=== PATIENT | male | born 1975 | race Caucasian/White ===

== ENCOUNTER 2016-10-27 09:45 | Outpatient (RCR) | payer OTHER ==
[~2016-10-27 09:45] MED LIST: ALPR.5T PO; CPR500T PO; HYDR1CAP2 PO; IBP600T1 PO; NAPR-243 PO; PHEN100T26 PO
== END 2016-12-20 | disposition home or self-care (01) ==
PROVIDERS: ATTEND Physician Assistant
DX: M54.5 Low back pain (principal)

== ENCOUNTER → 2016-11-29 | Outpatient (CLI) | payer OTHER ==
[~2016-11-29] MED LIST changes: +GADOBUTROL 10 MMOL/10 ML (GADAVIST) VIAL IV ONE
--- NOTE | 2016-11-29 11:02 | Diagnostic Imaging Report ---
CLINICAL INDICATION: Patient with history of pituitary adenoma. Followup exam. EXAM: MRI of the brain performed without and with 8 cc of Gadavist IV contrast. Sequences include axial DWI, ADC map, axial T2, axial FLAIR, axial T1, axial gradient echo, sagittal T1 thin sella, coronal T1 thin sella, coronal T2 fat-sat thin sella, axial T1 post IV contrast whole brain, coronal T1 fat-sat post IV contrast whole brain, sagittal T1 post IV contrast whole brain, sagittal T1 thin post IV contrast sella, coronal T1 thin post IV contrast sella, axial T1 thin post IV contrast sella, and coronal T1 post IV contrast dynamic phases. COMPARISON: MRI of the brain performed without and with IV contrast dated 05/18/2016. FINDINGS: The previously seen 6 mm heterogeneous hypo-intensity area involving the left posterior aspect of the pituitary gland is not seen on this exam. This area has either resolved, or it represented volume averaging from adjacent cavernous carotid artery on the prior study. There is no evidence of acute cerebral infarct, intracranial hemorrhage, or gross mass effect. Stable small area of high T2 signal in the right temporal lobe periventricular region. Otherwise, brain parenchyma is stable and shows no other significant abnormality. There is normal edgar-white matter distinction. The brain parenchymal volume appears appropriate for patient's age. There is no significant midline shift or herniation. The visualized [place] vascular structures show no significant abnormality. There is no evidence of hydrocephalus. The basal cisterns are unremarkable. The skull, extracranial soft tissue, and orbits are unremarkable. There is a small to moderate-sized mucous retention cyst in the floor of the right maxillary sinus. There is moderate mucosal thickening in the ethmoid sinus. There is minimal mucosal thickening involving the remainder of the bilateral maxillary sinuses and frontal sinus. IMPRESSION: 1: The previously seen 6 mm heterogeneous hypointensity area involving the left posterior aspect of the pituitary gland is not seen on this exam. This area has either resolved, or it represented volume averaging from adjacent cavernous carotid artery on the prior study. 2: The remainder of the brain parenchyma is stable, including the small area of nonspecific high T2 signal in the right temporal lobe. 3: Paranasal sinus disease. Dictated by: Dictated on workstation # [id number]
== END ==
LOC: RAD 09:12
PROVIDERS: ATTEND Internal Medicine
DX: D35.2 Benign neoplasm of pituitary gland (principal)
CPT/HCPCS: 70553

== ENCOUNTER 2017-02-15 11:20 | Outpatient (RCR) | payer OTHER ==
[~2017-02-15 11:20] MED LIST changes: -GADOBUTROL 10 MMOL/10 ML (GADAVIST) VIAL IV ONE
== END 2017-04-18 15:03 | disposition home or self-care (01) ==
PROVIDERS: ATTEND Physician Assistant
DX: M54.5 Low back pain (principal)

== ENCOUNTER 2020-04-18 22:03 | Inpatient (IN) | payer OTHER ==
[~2020-04-18] VITALS: Ht 177.8 cm; Wt 92.5 kg
[2020-04-18] MEDS ORDERED: PROMETHAZINE INJ 25 MG/ML (PHENERGAN) AMP ONE (22:07)
[2020-04-18] MEDS ORDERED: NS IV 1000 ML 1,000 ML ONE (22:07)
[2020-04-18] MEDS ORDERED: PROMETHAZINE INJ 25 MG/ML (PHENERGAN) AMP IVP ONE (22:15)
[2020-04-18] MEDS ORDERED: MECLIZINE 25 MG (ANTIVERT) TAB PO ONE (22:15)
[2020-04-18] MEDS ORDERED: NS IV 1000 ML 1,000 ML IV SCH (22:15)
--- NOTE | 2020-04-18 22:18 | ED GI ---
General Stated Complaint: DIZZINESS;VOMITING Source of Information: Patient Exam Limitations: No Limitations (AJYCE VARELA APRN) History of Present Illness Date Seen by Provider: Apr 18, 2020 Time Seen by Provider: 22:15 Initial Comments To ER with nausea and vomiting. This began with dizziness earlier today while at work, the dizziness progressed to vomiting. He's had some intermittent dizziness followed by vomiting this evening. He had a couple episodes of dizziness within the past 2-3 weeks but no vomiting. Dizziness goes away at rest but returns any time he moves. Timing/Duration: 1-2 Days, Getting Worse, Intermittent Severity/Quality: Moderate Radiation: No Radiation Associated Symptoms: Nausea/Vomiting (JAYCE VARELA APRN) Allergies and Home Medications Allergies Coded Allergies: No Known Drug Allergies (Unverified , 07/04/10) Home Medications Alprazolam 0.5 Mg Tablet, 1 TAB PO ONCE, (Reported) Ciprofloxacin 500 Mg Tablet, 1 TAB PO BID Prescribed by: KAVIN GARCIA on 07/05/1042 Hydrocodone Bit/Acetaminophen 1 Each Capsule, 2 EACH PO Q6HR PRN Prescribed by: KAVIN GARCIA on 07/05/1042 Ibuprofen 600 Mg Tab, 600 MG PO ONCE, (Reported) Meclizine HCl 25 Mg Tablet, 25 MG PO TID PRN for DIZZINESS Prescribed by: JAYCE VARELA on 04/18/202225 Naproxen 500 Mg Tablet, 1 EACH PO BID PRN Prescribed by: KAVIN GARCIA on 07/05/1043 Phenazopyridine Hcl 100 Mg Tablet, 1 TAB PO TID PRN Prescribed by: KAVIN GARCIA on 07/05/1042 Promethazine HCl 25 Mg Tablet, 25 MG PO Q8H PRN for NAUSEA/VOMITING Prescribed by: JAYCE VARELA on 04/18/202225 Patient Home Medication List Home Medication List Reviewed: Yes (JAYCE VARELA APRN) Review of Systems Review of Systems Constitutional: see HPI; No chills, No fever EENTM: No Symptoms Reported Respiratory: No Symptoms Reported Cardiovascular: No Symptoms Reported Gastrointestinal: No Symptoms Reported Genitourinary: No Symptoms Reported Musculoskeletal: no symptoms reported Skin: no symptoms reported Psychiatric/Neurological: No Symptoms Reported Endocrine: No Symptoms Reported Hematologic/Lymphatic: No Symptoms Reported (JAYCE VARELA APRN) Physical Exam Vital Signs Vital Signs - First Documented 04/18/20 22:08 Temp 36.5 Pulse 122 Resp 18 B/P (MAP) 132/80 (97) Pulse Ox 96 O2 Delivery Room Air (CHANCE MARTINEZ MD) Vital Signs Capillary Refill : (JAYCE VARELA APRN) Height/Weight/BMI Height: '" Weight: lbs. oz. kg; BMI Method: General Appearance: WD/WN, no apparent distress HEENT: PERRL/EOMI, normal ENT inspection Neck: non-tender, full range of motion Respiratory: no respiratory distress, no accessory muscle use Gastrointestinal: normal bowel sounds, non tender, soft Extremities: normal range of motion, non-tender Neurologic/Psychiatric: alert, normal mood/affect, oriented x 3 Skin: normal color, warm/dry (JAYCE VARELA APRN) Progress/Results/Core Measures Results/Orders Lab Results Laboratory Tests Test 04/18/20 22:11 Range/Units White Blood Count 10.2 4.3-11.0 10^3/uL Red Blood Count 5.91 H 4.35-5.85 10^6/uL Hemoglobin 17.2 13.3-17.7 G/DL Hematocrit 50 40-54 % Mean Corpuscular Volume 85 80-99 FL Mean Corpuscular Hemoglobin 29 25-34 PG Mean Corpuscular Hemoglobin Concent 34 32-36 G/DL Red Cell Distribution Width 14.0 10.0-14.5 % Platelet Count 191 130-400 10^3/uL Mean Platelet Volume 9.8 7.4-10.4 FL Neutrophils (%) (Auto) 71 42-75 % Lymphocytes (%) (Auto) 19 12-44 % Monocytes (%) (Auto) 8 0-12 % Eosinophils (%) (Auto) 2 0-10 % Basophils (%) (Auto) 1 0-10 % Neutrophils # (Auto) 7.3 1.8-7.8 X 10^3 Lymphocytes # (Auto) 1.9 1.0-4.0 X 10^3 Monocytes # (Auto) 0.8 0.0-1.0 X 10^3 Eosinophils # (Auto) 0.2 0.0-0.3 10^3/uL Basophils # (Auto) 0.1 0.0-0.1 10^3/uL Sodium Level 141 135-145 MMOL/L Potassium Level 4.5 3.6-5.0 MMOL/L Chloride Level 108 H 98-107 MMOL/L Carbon Dioxide Level 19 L 21-32 MMOL/L Anion Gap 14 5-14 MMOL/L Blood Urea Nitrogen 13 7-18 MG/DL Creatinine 1.13 0.60-1.30 MG/DL Estimat Glomerular Filtration Rate > 60 BUN/Creatinine Ratio 12 Glucose Level 132 H 70-105 MG/DL Calcium Level 9.1 8.5-10.1 MG/DL Corrected Calcium 8.5-10.1 MG/DL Total Bilirubin 0.5 0.1-1.0 MG/DL Aspartate Amino Transf (AST/SGOT) 44 H 5-34 U/L Alanine Aminotransferase (ALT/SGPT) 80 H 0-55 U/L Alkaline Phosphatase 68 40-136 U/L Total Protein 8.0 6.4-8.2 GM/DL Albumin 4.6 H 3.2-4.5 GM/DL (CHANCE MARTINEZ MD) My Orders Orders - CHANCE MARTINEZ MD Promethazine Injection (Phenergan Injec (04/18/20 22:07) Ns Iv 1000 Ml (Sodium Chloride 0.9%) (04/18/20 22:07) Chest 1 View, Ap/Pa Only (04/19/20 00:10) Ekg Tracing (04/19/20 00:10) Protime With Inr (04/19/20 00:10) Partial Thromboplastin Time (04/19/20 00:10) O2 (04/19/20 00:10) Monitor-Rhythm Ecg Trace Only (04/19/20 00:10) Lipid Panel (04/20/20 06:00) Troponin I (04/19/20 00:10) Diltiazem Injection (Cardizem Injection) (04/19/20 00:15) Diltiazem Drip Pre-Mix (Cardizem Drip Pr (04/19/20 00:15) Thyroid Analyzer (04/19/20 00:12) Ct Angio Head/Neck (04/19/20 01:01) Iohexol Injection (Omnipaque 350 Mg/Ml 1 (04/19/20 01:45) Received Contrast (Hold Metformin- Contr (04/19/20 01:45) Ns (Ivpb) (Sodium Chloride 0.9% Ivpb Bag (04/19/20 01:45) Apixaban Tablet (Eliquis Tablet) (04/19/20 02:30) Magnesium (04/19/20 00:10) Myoglobin Serum (04/19/20 00:10) (CHANCE MARTINEZ MD) Medications Given in ED Current Medications Medications Dose Ordered Sig/Arminda Route Start Time Stop Time Status Last Admin Dose Admin Diltiazem HCl 10 mg ONCE ONCE IVP 04/19/20 00:15 04/19/20 00:16 DC 04/19/20 00:22 10 MG Iohexol 100 ml ONCE ONCE IV 04/19/20 01:45 04/19/20 01:46 DC 04/19/20 01:49 75 ML Meclizine HCl 25 mg ONCE ONCE PO 04/18/20 22:15 04/18/20 22:16 DC 04/18/20 22:51 25 MG Promethazine HCl 12.5 mg ONCE ONCE IVP 04/18/20 22:15 04/18/20 22:16 DC 04/18/20 22:15 12.5 MG Sodium Chloride 100 ml ONCE ONCE IV 04/19/20 01:45 04/19/20 01:46 DC 04/19/20 01:49 80 ML (CHANCE MARTINEZ MD) Vital Signs/I&O 04/18/20 22:08 Temp 36.5 Pulse 122 Resp 18 B/P (MAP) 132/80 (97) Pulse Ox 96 O2 Delivery Room Air 04/19/20 00:00 Intake Total 1000 ml Balance 1000 ml (CHANCE MARTINEZ MD) Progress Progress Note : Time: 04:20 Progress Note Care of this patient was assumed from Jayce Varela while he was receiving IV fluids and Phenergan. He had also received meclizine. On my evaluation he was found to be somnolent. Grover-Hallpike test was positive on the left. This was converted to an Wei maneuver. However, Wei maneuver was aborted when it was discovered that he had irregularly irregular tachycardia. Patient was placed on the monitor found to have atrial fibrillation with RVR. He was started on a Cardizem drip with bolus. This gradually improved his symptoms. While patient was still tachycardic he was again checked for neurologic symptoms. He was found to have some disequilibrium with standing and walking. For this reason a CT angiogram of the head and neck was obtained to rule out posterior circulation stroke associated with A. fib. CT angiograms were unremarkable. Patient's symptoms eventually did resolve once heart rate dropped to about 100. Patient was continued on a Cardizem drip and Eliquis was administered per Dr. Munoz's recommendation. (CHANCE MARTINEZ MD) Initial ECG Impression Date: Apr 19, 2020 Initial ECG Impression Time: 00:32 Initial ECG Rate: 138 Initial ECG Rhythm: A Fib/Flutter Initial ECG Impression: Atrial Fibrillation w/RVR Comment A. fib RVR with no ST elevation or depression. (CHANCE MARTINEZ MD) Diagnostic Imaging Diagonstic Imaging: CT Plain Films/CT/US/NM/MRI: other (CT angiogram head and neck) Comments CT angiogram head and neck viewed by me and [employer] report reviewed. No acute abnormalities appreciated. (CHANCE MARTINEZ MD) Departure Communication (Admissions) Time/Spoke to Admitting Phy: 00:14 Dr. Car Time/Spoke to Consulting Phy: 02:17 Dr. Munoz (CHANCE MARTINEZ MD) Impression Primary Impression: Atrial fibrillation with RVR Additional Impressions: Vertigo Vomiting Qualified Codes: R11.2 - Nausea with vomiting, unspecified Disposition: 01 HOME, SELF-CARE Condition: Improved Admissions Decision to Admit Reason: Admit from ER (General) Decision to Admit/Date: Apr 19, 2020 Time/Decision to Admit Time: 00:10 (CHANCE MATRINEZ MD) Departure-Patient Inst. Decision time for Depature: 22:25 (JAYCE VARELA APRN) Referrals: CHARISSE BLAND DO (PCP/Family) Primary Care Physician Patient Instructions: Vertigo (a Type of Dizziness) (DC) Scripts Promethazine HCl (Promethazine Tablet) 25 Mg Tablet 25 MG PO Q8H PRN for NAUSEA/VOMITING, #14 TAB Prov: JAYCE VARELA APRN 04/18/20 Meclizine HCl (Meclizine HCl) 25 Mg Tablet 25 MG PO TID PRN for DIZZINESS, #10 TAB Prov: JAYCE VARELA APRN 04/18/20 Copy Copies To 1: CHARISSE BLAND PETER J APRN Apr 18, 2020 22:17 CHANCE MARTINEZ MD Apr 19, 2020 02:24
[2020-04-18 22:21] LABS: BASOPHILS # (AUTO) 0.1 10^3/uL (0.0-0.1); BASOPHILS % (AUTO) 1 % (0-10); EOSINOPHILS # (AUTO) 0.2 10^3/uL (0.0-0.3); EOSINOPHILS % (AUTO) 2 % (0-10); HEMATOCRIT 50 % (40-54); HEMOGLOBIN 17.2 G/DL (13.3-17.7); LYMPHOCYTES # (AUTO) 1.9 X 10^3 (1.0-4.0); LYMPHOCYTES % (AUTO) 19 % (12-44); MEAN CORPUSCULAR HEMOGLOBIN 29 PG (25-34); MEAN CORPUSCULAR HGB CONC 34 G/DL (32-36); MEAN CORPUSCULAR VOLUME 85 FL (80-99); MEAN PLATELET VOLUME 9.8 FL (7.4-10.4); MONOCYTES # (AUTO) 0.8 X 10^3 (0.0-1.0); MONOCYTES % (AUTO) 8 % (0-12); NEUTROPHILS # (AUTO) 7.3 X 10^3 (1.8-7.8); NEUTROPHILS % (AUTO) 71 % (42-75); PLATELET COUNT 191 10^3/uL (130-400); WHITE BLOOD COUNT 10.2 10^3/uL (4.3-11.0)
[2020-04-18] MEDS ORDERED: PROM25TA14 PO (22:26)
[2020-04-18] MEDS ORDERED: MECL-149 PO (22:26)
[2020-04-18 22:27] LABS: ALBUMIN 4.6 GM/DL (3.2-4.5); CHLORIDE 108 MMOL/L (98-107); POTASSIUM 4.5 MMOL/L (3.6-5.0); SODIUM 141 MMOL/L (135-145)
[2020-04-18 22:28] LABS: CALCIUM 9.1 MG/DL (8.5-10.1)
[2020-04-18 22:29] LABS: GLUCOSE 132 MG/DL (70-105)
[2020-04-18 22:31] LABS: BILIRUBIN,TOTAL 0.5 MG/DL (0.1-1.0); CARBON DIOXIDE 19 MMOL/L (21-32)
[2020-04-18 22:33] LABS: ALKALINE PHOSPHATASE 68 U/L (40-136); CREATININE SERUM 1.13 MG/DL (0.60-1.30); GFR ESTIMATED > 60
[2020-04-18 22:34] LABS: BUN/CREATININE RATIO 12
[2020-04-18 22:36] LABS: ALANINE AMINOTRANSFERASE 80 U/L (0-55)
[2020-04-19] VITALS (24 sets, daily range): BP systolic 86–147; BP diastolic 57–117
[2020-04-19] MEDS ORDERED: dilTIAZem DRIP PRE-MIX 125 ML IV SCH (00:15)
--- NOTE | 2020-04-19 00:28 | NUR ---
04/18/20- 766 MOVED FROM ED 10 TO ED 4. 04/18/20- 833 DR. MARTINEZ IN ROOM. ECG STARTED TO SHOW AFIB RVR.
--- OUTSIDE RECORDS SUMMARY | 2020-04-19 01:16 | XMS REPORT ---
Author Author Stylect jack prizer [employer] [place] Address [address] [address] Care Team Providers Care Data Administrator Name Role Phone SHAHAB WELLSUA R Unavailable SWEET PA, CHANCE R Unavailable Unavailable CHARISSE BLAND DO Unavailable Unavailable CHARISSE BLAND DO Unavailable Unavailable CHANCE MARTINEZ MD Unavailable Unavailable Unavailable Unavailable Unavailable Unavailable Unavailable Unavailable Allergies The data below is from unstructured sourcesNo known allergies. Encounters Encounter Date Encounter Type Encounter Diagnosis Care Provider Facility Start: Emergency department CHANCE MARTINEZ [facility] Via [facility] 04-18-2020 patient visit [facility] Start: Patient encounter CHARISSE BLAND DO [facility] Vi a [facility] 07-10-2019 procedure Hospital [facility] ([id number]) Start: Patient encounter CHANCE SWEET PA Not Availa ble ([id number]) 02-15-2017 procedure End: 04-18-2017 Start: Patient encounter CHANCE SWEET PA Not Availa ble ([id number]) 01-25-2017 procedure Start: Patient encounter CHARISSE BLAND DO Not Av ailable ([id number]) 11-29-2016 procedure Start: Patient encounter CHANCE SWEET PA Not Availa ble ([id number]) 10-27-2016 procedure End: 12-20-2016 Start: Patient encounter CHANCE SWEET PA Not Availa ble ([id number]) 10-24-2016 procedure Start: Patient encounter CHANCE SWEET PA Not Availa ble ([id number]) 10-21-2016 procedure Start: Patient encounter CHANCE SWEET PA Not Availa ble ([id number]) 10-14-2016 procedure Start: Patient encounter CHANCE SWEET PA Not Availa ble ([id number]) 10-11-2016 procedure Start: Patient encounter CHANCE SWEET PA Not Availa ble ([id number]) 10-04-2016 procedure Start: Patient encounter CHANCE SWEET PA Not Availa ble ([id number]) 09-30-2016 procedure Start: Patient encounter CHANCE MONTERROSO Not Availa ble ([id number]) 09-21-2016 procedure Start: Patient encounter CHARISSE BLAND DO Not Av ailable ([id number]) 05-18-2016 procedure Medical Equipment No Information Goals No Information Immunizations No Information Interventions No Information Medications No Information Payers No Information Plan of Treatment The data below is from unstructured sources Prescriptions See Medication Section Problems Active Problems Problem Problem Date Last Documented Episodic/Chr Provider Classificati Recorded Date onic on Other Disorder of pituitary gland, Chronic CHARISSE endocrine unspecified BLAND DO disorders (1 source) Other Disorder of brain, unspecified Chronic CHARISSE nervous BLAND DO system disorders (1 source) Spondylosis; Low back pain Episodic CHANCE WELLS intervertebr PA al disc disorders; other back problems (13 sources) Past or Other Problems Problem Problem Date Last Documented Episodic/Chr Provider Classificati Recorded Date onic on Other and Benign neoplasm of pituitary gland Episodic CHARISSE unspecified BLAND DO benign neoplasm (2 sources) Procedures The data below is from unstructured sourcesNo procedure information available. Results Test Name Value Interpreta Reference Facilit Date tion Range y Time laboratory on 2020-04-18 Albumin [Mass/Vol] 4.6 g/dL High 3.2-4.5 PENDING 08-0 1-2 g/dL [facility] 18:11-0 ([id number]) 400 ALP [Catalytic 68 U/L Negative 40-136 U/L PENDING activity/Vol] [facility] 18:11-0 ([id number]) 400 ALT [Catalytic 80 U/L High 0-55 U/L PENDING 2 activity/Vol] [facility] N [facility] 18:11-0 ([id number]) 400 Anion gap 14 mmol/L Negative 5-14 PENDING [Moles/Vol] mmol/L [facility] 18:11-0 ([id number]) 400 AST [Catalytic 44 U/L High 5-34 U/L PENDING activity/Vol] [facility] 18:11-0 ([id number]) 400 Basophils (Bld) 0.1 10*3/uL Negative 0.0-0.1 PENDING 04-18 [#/Vol] 10*3/uL [facility] 18:11-0 ([id number]) 400 Basophils/100 WBC 1 % Negative 0-10 % PENDING 04-18 (Bld) [facility] 18:11-0 ([id number]) 400 Bilirubin [Mass/Vol] 0.5 mg/dL Negative 0.1-1.0 PENDING 2 mg/dL [facility] 18:11-0 ([id number]) 400 Calcium [Mass/Vol] 9.1 mg/dL Negative 8.5-10.1 PENDING 08-0 1-2 mg/dL [facility] 18:11-0 (27584) 400 Chloride [Moles/Vol] 108 mmol/L High 98-107 PENDING 0 8--2 mmol/L [facility] N [facility] 18:11-0 ([id number]) 400 CO2 [Moles/Vol] 19 mmol/L Low 21-32 PENDING 2 mmol/L [facility] N [facility] 18:11-0 (40315) 400 Creatinine 1.13 mg/dL Negative 0.60-1.30 PENDING [Mass/Vol] mg/dL [facility] 18:11-0 (47031) 400 Creatinine and > Invalid PENDING Glomerular Interpreta [facility] 020 filtration tion Code N [facility] 18:11-0 rate.predicted panel ([id number]) 400 - Serum, Plasma or Blood Eosinophils (Bld) 0.2 10*3/uL Negative 0.0-0.3 PENDING 09-19 [#/Vol] 10*3/uL [facility] 18:11-0 (85087) 400 Eosinophils/100 WBC 2 % Negative 0-10 % PENDING 09-19 (Bld) [facility] 18:11-0 ([id number]) 400 Erythrocyte 14.0 % Negative 10.0-14.5 PENDING distribution width % [facility] 020 (RBC) [Ratio] N [facility] 18:11-0 (80800) 400 Glucose [Mass/Vol] 132 mg/dL High 70-105 PENDING 08 1-2 mg/dL [facility] June [facility] 18:11-0 (28095) 400 Hematocrit (Bld) 50 % Negative 40-54 % PENDING [Volume fraction] [facility] N [facility] 18:11-0 ([id number]) 400 Hemoglobin (Bld) 17.2 g/dL Negative 13.3-17.7 PENDING [Mass/Vol] g/dL [facility] 18:11-0 ([id number]) 400 Lymphocytes (Bld) 1.9 10*3/uL Negative 1.0-4.0 PENDING 09-19 [#/Vol] 10*3 [facility] June [facility] 18:11-0 ([id number]) 400 Lymphocytes/100 WBC 19 % Negative 12-44 % PENDING 09-19 (Bld) [facility] June [facility] 18:11-0 ([id number]) 400 MCH (RBC) [Entitic 29 pg Negative 25-34 pg PENDING 080 1-2 mass] [address] 18:11-0 ([id number]) 400 MCHC (RBC) 34 g/dL Negative 32-36 g/dL PENDING [Mass/Vol] [facility] June [facility] 18:11-0 ([id number]) 400 MCV (RBC) [Entitic 85 Negative 80-99 PENDING 08-0 1-2 vol] [foz_us] [facility] June [facility] 18:11-0 ([id number]) 400 Monocytes (Bld) 0.8 10*3/uL Negative 0.0-1.0 PENDING 04-18 [#/Vol] 10*[facility] [address] [place] [address] 18:11-0 ([id number]) 400 Monocytes/100 WBC 8 % Negative 0-12 % PENDING 04-18 (Bld) [address] 18:11-0 (21726) 400 Neutrophils (Bld) 7.3 10*3/uL Negative 1.8-7.8 PENDING 09-19 [#/Vol] 10*[address] [facility] [address] [place] [address] 18:11-0 ([id number]) 400 Neutrophils/100 WBC 71 % Negative 42-75 % PENDING 09-19 (Bld) [facility] 18:11-0 (25386) 400 Platelet mean volume 9.8 Negative 7.4-10.4 PENDING (Bld) [Entitic vol] [foz_us] [facility] 18:11-0 ([id number]) 400 Platelets (Bld) 191 10*3/uL Negative 130-400 PENDING 04-18 [#/Vol] 10*3/uL [facility] N [facility] 18:11-0 ([id number]) 400 Potassium 4.5 mmol/L Negative 3.6-5.0 PENDING [Moles/Vol] mmol/L [facility] 0[facility] 18:11-0 ([id number]) 400 Protein [Mass/Vol] 8.0 g/dL Negative 6.4-8.2 PENDING 1-2 g/dL [facility] 18:11-0 ([id number]) 400 RBC (Bld) [#/Vol] 5.91 10*6/uL High 4.35-5.85 PENDING 10*6/uL [facility] 18:11-0 ([id number]) 400 Sodium [Moles/Vol] 141 mmol/L Negative 135-145 PENDING 09-19 mmol/L [facility] 0[facility] N [facility] 18:11-0 ([id number]) 400 Urea nitrogen 13 mg/dL Negative 7-18 mg/dL PENDING [Mass/Vol] [facility] 18:11-0 (05561) 400 Urea 12 mg/mg Invalid PENDING nitrogen/Creatinine Interpreta [facility] 020 [Mass ratio] tion Code N [facility] 18:11-0 (83440) 400 WBC (Bld) [#/Vol] 10.2 10*3/uL Negative 4.3-11.0 PENDING 10*3/uL [facility] N [facility] 18:11-0 ([id number]) 400 Social History No Information Vital Signs The data below is from unstructured sourcesNo vital sign information available. Functional Status The data below is from unstructured sourcesNo functional status information available. Mental Status No Information Advance Directives No advance directive information available. Discharge Instructions No hospital discharge instruction information available. Additional Source Comments This clinical document has been generated using [employer] software that has been certified by the Office of the National Coordinator for Health Information Technology (ONC 15.99.04.3023.Diam.31.00.0.553228) and the National [employer] for [employer] (NCQA, as an eMeasure certified technology). FOR RECORDS PERTAINING TO PATIENTS WHO ARE OR HAVE BEEN ENROLLED IN A CHEMICAL D EPENDENCY/SUBSTANCE ABUSE PROGRAM, SOME INFORMATION MAY BE OMITTED. This clinica l summary was aggregated from multiple sources. Caution should be exercised in using it in the provision of clinical care. This summary normalizes information from multiple sources, and as a consequence, information in this document may ma terially change the coding, format and clinical context of patient data. In vi tion, data may be omitted in some cases. CLINICAL DECISIONS SHOULD BE BASED ON T HE PRIMARY CLINICAL RECORDS. [employer] provides no warranty or guara ntee of the accuracy or completeness of information in this document.The followi ng information is based on time limited clinical information
--- OUTSIDE RECORDS SUMMARY | 2020-04-19 01:16 | XMS REPORT | Continuity of Care Document ---
Author Organization Unknown Address Unknown Phone Unavailable Allergies Active Description Code Type Severity Reaction Onset Reported/Identified Relationship to Patient Clinical Status Yes No Known Drug Allergies [id number] Drug Allergy Unknown N/A 07/04/2010 Medications There is no data. 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 5 LOW BACK PAIN 11/29/2016 CHARISSE BLAND DO Ot D35.2 BENIGN NEOPLASM OF PITUITARY GLAND 11/30/2016 CHARISSE BLAND DO Ot D35.2 BENIGN NEOPLASM OF PITUITARY GLAND 11/30/2016 CHANCE LUGO R Ot M54. 5 LOW BACK PAIN 12/20/2016 CHANCE LUGO Ot M54. 5 LOW BACK PAIN 12/21/2016 CHARISSE BLAND DO Ot D35.2 BENIGN NEOPLASM OF PITUITARY GLAND 01/26/2017 CHARISSE BLAND DO Ot D35.2 BENIGN NEOPLASM OF PITUITARY GLAND 01/26/2017 CHANCE LUGO Ot M54. 5 LOW BACK PAIN 03/01/2017 CHANCE LUGO Ot M54. 5 LOW BACK PAIN Procedures There is no data. Results There is no data. Encounters ACCT No. Visit Date/Time Discharge Status Pt. Type Provider Facility Loc./Unit Complaint [id number] 07/10/2019 14:30:00 019 14:30:00 CAN Preadmit CHARISSE BLAND DO Via [facility] RAD THYROMEGALY [id number] 02/15/2017 11:20:00 017 15:03:00 DIS Outpatient CHANCE LGUO [facility] REHAB LOW BACK PAIN [id number] 12/21/2016 00:12:00 017 23:59:59 CLS Preadmit CHANCE LUGO [facility] REHAB LBP [id number] 10/27/2016 09:45:00 017 00:01:00 DIS Outpatient CHANCE LUGO [facility] REHAB LBP [id number] 11/29/2016 09:12:00 017 23:59:59 CLS Outpatient CHARISSE BLAND DO Via [facility] RAD PITUITARY ADENO MA [id number] 05/18/2016 09:34:00 016 23:59:59 CLS Outpatient CHARISSE BLAND DO [facility] RAD HEADACHES
[2020-04-19] MEDS ORDERED: HOLD METFORMIN - RECEIVED CONTRAST 20 ML VIAL IV SCH (01:45)
[2020-04-19] MEDS ORDERED: NS 100 ML (IVPB) BAG IV ONE (01:45)
[2020-04-19] MEDS ORDERED: IOHEXOL 350 MG/ML 100 ML (OMNIPAQUE 350) VIAL IV ONE (01:45)
[2020-04-19] MEDS ORDERED: APIXABAN 5 MG (ELIQUIS) TABLET PO ONE (02:30)
--- OUTSIDE RECORDS SUMMARY | 2020-04-19 02:52 | XMS REPORT ---
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 [facility] Address [address] [address] Care Team Providers Care Heel Packer Name Role Phone SHAHAB WELLSUA R Unavailable SWEET PA, CHANCE R Unavailable Unavailable CHARISSE BLAND DO Unavailable Unavailable CHARISSE BLAND DO Unavailable Unavailable CHANCE MARTINEZ MD Unavailable Unavailable Unavailable Unavailable Unavailable Unavailable Unavailable Unavailable Allergies The data below is from unstructured sourcesNo known allergies. Encounters Encounter Date Encounter Type Encounter Diagnosis Care Provider Facility Start: Emergency department CHANCE MARTINEZ [facility] 04-18-2020 patient visit [facility] Start: Patient encounter CHARISSE BLAND DO [facility] 07-10-2019 procedure Hospital [facility] ([id number]) Start: Patient encounter CHANCE SWEET PA Not Availa ble ([id number]) 02-15-2017 procedure End: 04-18-2017 Start: Patient encounter CHANCE SWEET PA Not Availa ble ([id number]) 01-25-2017 procedure Start: Patient encounter CHARISSE BLAND DO Not Av ailable ([id number]) 11-29-2016 procedure Start: Patient encounter CHANCE SWEET PA Not Availa ble ([id number]) 10-27-2016 procedure End: 12-20-2016 Start: Patient encounter CHANCE SWEET PA Not Availa ble ([id number]) 10-24-2016 procedure Start: Patient encounter CHANCE SWEET PA Not Availa ble ([id number]) 10-21-2016 procedure Start: Patient encounter CHANCE SWEET PA Not Availa ble ([id number]) 10-14-2016 procedure Start: Patient encounter CHANCE SWEET PA Not Availa ble ([id number]) 10-11-2016 procedure Start: Patient encounter CHANCE SWEET PA Not Availa ble ([id number]) 10-04-2016 procedure Start: Patient encounter CHANCE SWEET PA Not Availa ble ([id number]) 09-30-2016 procedure Start: Patient encounter CHANCE MONTERROSO Not Availa ble ([id number]) 09-21-2016 procedure Start: Patient encounter CHARISSE BLAND DO Not Av ailable ([id number]) 05-18-2016 procedure Medical Equipment No Information Goals [...] 1-2 g/dL [facility] 18:11-0 ([id number]) 400 ALP [Catalytic 68 U/L Negative 40-136 U/L PENDING activity/Vol] [facility] 0[facility] N [facility] 18:11-0 ([id number]) 400 ALT [Catalytic 80 U/L High 0-55 U/L PENDING 2 activity/Vol] [facility] 0[facility] N [facility] 18:11-0 ([id number]) 400 Anion gap 14 mmol/L Negative 5-14 PENDING [Moles/Vol] mmol/L [facility] 0[facility] N [facility] 18:11-0 ([id number]) 400 AST [Catalytic 44 U/L High 5-34 U/L PENDING activity/Vol] [facility] 0[facility] N [facility] 18:11-0 ([id number]) 400 Basophils (Bld) 0.1 10*3/uL Negative 0.0-0.1 PENDING 04-18 [#/Vol] 10*3/uL [facility] 0[facility] 18:11-0 ([id number]) 400 Basophils/100 WBC 1 % Negative 0-10 % PENDING 04-18 (Bld) [facility] 18:11-0 ([id number]) 400 Bilirubin [Mass/Vol] 0.5 mg/dL Negative 0.1-1.0 PENDING 2 mg/dL [facility] 0[facility] 18:11-0 ([id number]) 400 Calcium [Mass/Vol] 9.1 mg/dL Negative 8.5-10.1 PENDING 08-0 1-2 mg/dL [facility] 0[facility] N [facility] 18:11-0 ([id number]) 400 Chloride [Moles/Vol] 108 mmol/L High 98-107 PENDING 0 8--2 mmol/L [facility] 0[facility] N [facility] 18:11-0 (16837) 400 CO2 [Moles/Vol] 19 mmol/L Low 21-32 PENDING 2 mmol/L [facility] 0[facility] N [facility] 18:11-0 (30191) 400 Creatinine 1.13 mg/dL Negative 0.60-1.30 PENDING [Mass/Vol] mg/dL [facility] 0[facility] N [facility] 18:11-0 ([id number]) 400 Creatinine and > Invalid PENDING Glomerular Interpreta [facility] 020 filtration tion Code N [facility] 18:11-0 rate.predicted panel ([id number]) 400 - Serum, Plasma or Blood Eosinophils (Bld) 0.2 10*3/uL Negative 0.0-0.3 PENDING 09-19 [#/Vol] 10*3/uL [facility] 0[facility] N [facility] 18:11-0 ([id number]) 400 Eosinophils/100 WBC 2 % Negative 0-10 % PENDING 09-19 (Bld) [facility] N [facility] 18:11-0 (02529) 400 Erythrocyte 14.0 % Negative 10.0-14.5 PENDING distribution width % [facility] 020 (RBC) [Ratio] N [facility] 18:11-0 ([id number]) 400 Glucose [Mass/Vol] 132 mg/dL High 70-105 PENDING 08 1-2 mg/dL [facility] June [facility] 18:11-0 ([id number]) 400 Hematocrit (Bld) 50 % Negative 40-54 % PENDING [Volume fraction] [facility] N [facility] 18:11-0 ([id number]) 400 Hemoglobin (Bld) 17.2 g/dL Negative 13.3-17.7 PENDING [Mass/Vol] g/dL [facility] 18:11-0 ([id number]) 400 Lymphocytes (Bld) 1.9 10*3/uL Negative 1.0-4.0 PENDING 09-19 [#/Vol] 10*3 [facility] June [facility] 18:11-0 (73156) 400 Lymphocytes/100 WBC 19 % Negative 12-44 % PENDING 09-19 (Bld) [facility] June [facility] 18:11-0 (17002) 400 MCH (RBC) [Entitic 29 pg Negative 25-34 pg PENDING 080 1-2 mass] [address] 18:11-0 ([id number]) 400 MCHC (RBC) 34 g/dL Negative 32-36 g/dL PENDING [Mass/Vol] [facility] June [facility] 18:11-0 (24739) 400 MCV (RBC) [Entitic 85 Negative 80-99 PENDING 08-0 1-2 vol] [foz_us] [facility] June [facility] 18:11-0 ([id number]) 400 Monocytes (Bld) 0.8 10*3/uL Negative 0.0-1.0 PENDING 04-18 [#/Vol] 10*3 [facility] [address] [place] [address] 18:11-0 ([id number]) 400 Monocytes/100 WBC 8 % Negative 0-12 % PENDING 04-18 (Bld) [address] 18:11-0 ([id number]) 400 Neutrophils (Bld) 7.3 10*3/uL Negative 1.8-7.8 PENDING 09-19 [#/Vol] 10*[address] [address] [place] [address] 18:11-0 (41881) 400 Neutrophils/100 WBC 71 % Negative 42-75 % PENDING 09-19 (Bld) [facility] 18:11-0 ([id number]) 400 Platelet mean volume 9.8 Negative 7.4-10.4 PENDING (Bld) [Entitic vol] [foz_us] [facility] 0[facility] N [facility] 18:11-0 ([id number]) 400 Platelets (Bld) 191 10*3/uL Negative 130-400 PENDING 04-18 [#/Vol] 10*3/uL [facility] 0[facility] N [facility] 18:11-0 (75912) 400 Potassium 4.5 mmol/L Negative 3.6-5.0 PENDING [Moles/Vol] mmol/L [facility] 0[facility] N [facility] 18:11-0 ([id number]) 400 Protein [Mass/Vol] 8.0 g/dL Negative 6.4-8.2 PENDING 1-2 g/dL [facility] 0[facility] N [facility] 18:11-0 (40688) 400 RBC (Bld) [#/Vol] 5.91 10*6/uL High 4.35-5.85 PENDING 10*6/uL [facility] 0[facility] N [facility] 18:11-0 (00265) 400 Sodium [Moles/Vol] 141 mmol/L Negative 135-145 PENDING 09-19 mmol/L [facility] 0[facility] N [facility] 18:11-0 (48219) 400 Urea nitrogen 13 mg/dL Negative 7-18 mg/dL PENDING [Mass/Vol] [facility] N [facility] 18:11-0 (85655) 400 Urea 12 mg/mg Invalid PENDING nitrogen/Creatinine Interpreta [facility] 020 [Mass ratio] tion Code N [facility] 18:11-0 (87345) 400 WBC (Bld) [#/Vol] 10.2 10*3/uL Negative 4.3-11.0 PENDING 10*3/uL [facility] 0[facility] N [facility] 18:11-0 (93830) 400 Social History No Information Vital Signs The data below is from unstructured sourcesNo vital sign information available. Functional Status The data below is from unstructured sourcesNo functional status information available. Mental Status No Information Advance Directives No advance directive information available. Discharge Instructions No hospital discharge instruction information available. Additional Source Comments This clinical document has been generated using [employer] software that has been certified by the Office of the National Coordinator for Health Information Technology (ONC 15.99.04.3023.Diam.31.00.0.518610) and the National Committee for Woodenware Assembler (NCQA, as an eMeasure certified technology). FOR [...] BASED ON T HE PRIMARY CLINICAL RECORDS. [employer] provides no warranty or guara ntee of the accuracy or completeness of information in this document.The followi ng information is based on time limited clinical information
--- OUTSIDE RECORDS SUMMARY | 2020-04-19 02:52 | XMS REPORT | Continuity of Care Document ---
Author Organization Unknown Address Unknown Phone Unavailable Allergies Active Description Code Type Severity Reaction Onset Reported/Identified Relationship to Patient Clinical Status Yes No Known Drug Allergies [id number] Drug Allergy Unknown N/A 07/04/2010 Medications There is no data. 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 Type Provider Facility Loc./Unit Complaint [id number] 07/10/2019 14:30:00 019 14:30:00 CAN Preadmit CHARISSE BLAND DO [facility] RAD THYROMEGALY [id number] 02/15/2017 11:20:00 017 15:03:00 DIS Outpatient CHANCE LUGO [facility] REHAB LOW BACK PAIN [id number] 12/21/2016 00:12:00 017 23:59:59 CLS Preadmit CHANCE LUGO [facility] REHAB LBP [id number] 10/27/2016 09:45:00 017 00:01:00 DIS Outpatient CHANCE LUGO [facility] REHAB LBP [id number] 11/29/2016 09:12:00 017 23:59:59 CLS Outpatient CHARISSE BLAND DO [facility] RAD PITUITARY ADENO MA [id number] 05/18/2016 09:34:00 016 23:59:59 CLS Outpatient CHARISSE BLAND DO [facility] RAD HEADACHES
[2020-04-19 04:07] LABS: MAGNESIUM 1.9 MG/DL (1.6-2.4)
[2020-04-19 04:28] LABS: TSH (THYROID ANALYZER) 1.65 UIU/ML (0.35-4.94)
[2020-04-19 04:37] LABS: BASOPHILS # (AUTO) 0.1 10^3/uL (0.0-0.1); BASOPHILS % (AUTO) 1 % (0-10); EOSINOPHILS # (AUTO) 0.2 10^3/uL (0.0-0.3); EOSINOPHILS % (AUTO) 2 % (0-10); HEMATOCRIT 47 % (40-54); HEMOGLOBIN 16.2 G/DL (13.3-17.7); LYMPHOCYTES % (AUTO) 22 % (12-44); MEAN CORPUSCULAR HEMOGLOBIN 29 PG (25-34); MEAN CORPUSCULAR HGB CONC 35 G/DL (32-36); MEAN CORPUSCULAR VOLUME 85 FL (80-99); MEAN PLATELET VOLUME 10.4 FL (7.4-10.4); MONOCYTES # (AUTO) 0.7 X 10^3 (0.0-1.0); MONOCYTES % (AUTO) 7 % (0-12); NEUTROPHILS # (AUTO) 6.3 X 10^3 (1.8-7.8); NEUTROPHILS % (AUTO) 69 % (42-75); PLATELET COUNT 211 10^3/uL (130-400); RED CELL DISTRIBUTION WIDTH 13.9 % (10.0-14.5); WHITE BLOOD COUNT 9.1 10^3/uL (4.3-11.0)
[2020-04-19 04:43] LABS: CHLORIDE 108 MMOL/L (98-107); POTASSIUM 4.5 MMOL/L (3.6-5.0); SODIUM 141 MMOL/L (135-145)
[2020-04-19 04:44] LABS: CALCIUM 8.4 MG/DL (8.5-10.1)
[2020-04-19 04:45] LABS: GLUCOSE 99 MG/DL (70-105)
[2020-04-19 04:46] LABS: CARBON DIOXIDE 21 MMOL/L (21-32)
[2020-04-19 04:48] LABS: PHOSPHORUS 3.6 MG/DL (2.3-4.7)
[2020-04-19 04:49] LABS: BUN/CREATININE RATIO 12; GFR ESTIMATED > 60
[2020-04-19] MEDS: dilTIAZem DRIP 125 MG/125 ML DRIP IV SCH ×2 (06:51→15:44)
--- NOTE | 2020-04-19 08:13 | Diagnostic Imaging Report ---
PROCEDURE: CT angiography of the head and CT angiography of the neck with and without contrast. TECHNIQUE: Contiguous noncontrast images were obtained from the skull base through the vertex. After intravenous contrast administration, helical CT angiography of the neck was performed. Source data was reformatted into 3D MIP projections. Delayed post contrast acquisition was also obtained. Auto Exposure Controls were utilized during the CT exam to meet ALARA standards for radiation dose reduction. INDICATION: Disequilibrium with new onset atrial fibrillation. Comparison is made with a a prior brain MRI from 11/29/2016. FINDINGS: The noncontrast CT of the head demonstrates no evidence of an acute intracranial abnormality. There is no evidence of intracranial hemorrhage. There is no mass effect or shift. There is no hydrocephalus. There is no abnormal extra-axial fluid collection. Cramer-white matter differentiation appear maintained without evidence of abnormal low density in the basal ganglia or within the dmitry. Mastoid air cells appear clear. Paranasal sinuses demonstrate some minimal mucosal thickening in the ethmoids. There are no air-fluid levels. Orbital contents unremarkable. CTA demonstrates a three-vessel aortic arch without evidence of significant stenosis at the origins of the great vessels. The vertebral artery origins are also patent. Common carotid arteries unremarkable. There is no significant stenosis at the carotid bifurcations. There is some mild tortuosity of the right internal carotid artery. The vertebral arteries within the neck demonstrate no stenosis or evidence of dissection. Intracranially, there is appropriate flow within the internal carotid arteries. Carotid terminus unremarkable. M1 segment of both middle cerebral arteries widely patent with no occluded M2 branch. Anterior cerebral arteries are patent. Within the posterior circulation, both the vertebral arteries are patent. There is a patent left posterior inferior cerebellar artery. There is a large right anterior inferior cerebellar artery and small left anterior inferior cerebellar artery. The superior cerebellar arteries are patent. Both of the posterior cerebral arteries are patent. There is a origin of the right CATALOGUE COMPILER. There is also a moderate sized left posterior communicating artery. There are no findings of intracranial aneurysm formation. The dural venous sinuses are patent. Postcontrast imaging demonstrates no pathologic intracranial enhancement. Soft tissues of the neck demonstrate no acute process. Lung apices clear. No acute abnormality evident within the cervical spine. IMPRESSION: 1. No CT evidence of an acute intracranial abnormality 2. No evidence of intracranial large vessel occlusion or significant stenosis. 3. No findings of aneurysm formation. 4. Dural venous sinuses patent. 5. No pathologic intracranial enhancement 6. CTA neck demonstrates no significant stenosis or dissection. 7. I agree with the preliminary [facility] report. Dictated by: Dictated on workstation # [id number]
--- NOTE | 2020-04-19 08:49 | History & Physical-Hospitalist ---
History of Present Illness HPI/Chief Complaint Pt is a 45yoCM with no past medical history who presented to the ER due to dizziness. He states that he was at work and got very dizzy, even to the point of vomiting. He wasn't even sure he'd be able to walk to his car due to the severity of his dizziness. He was able to make it home but over the evening it got worse and he decided to seek evaluation because of the vomiting. He was treated for vertigo in the ER but this did not improve his symptoms. The ER was about to attempt an Eppley maneuver but noticed that he was quite tachycardiac. EKG was done and revealed he was in a-fib with RVR. He was started on cardizem and when he rate dropped to 100 his symptoms resolved. He was admitted to the ICU for cardizem gtt. He reports he is feeling much better this morning. While I was at bedside though his heartrate would jump from the 80s to 140s regularly and when it was in the 140s he was again symptomatic. Source: patient Date Seen 04/19/20 Time Seen by a Provider: 08:44 Attending Physician Eleonora Car MD PCP Terrance Coyne DO Referring Physician Date of Admission Apr 19, 2020 at 02:21 Home Medications & Allergies Home Medications Reviewed patient Home Medication Reconciliation performed by pharmacy medication reconciliations heavy equipment technician and/or nursing. Patients Allergies have been reviewed. Allergies Allergies Coded Allergies No Known Drug Allergies (Ddbkyilchc36/17/10) Past Afmjybw-Aaiork-Qcwfhi Hx Past Med/Social Hx: Reviewed Nursing Past Med/Soc Hx Patient Social History Employed/Student: employed Alcohol Use: Denies Use Recreational Drug Use: No Smoking Status: Never a Smoker 2nd Hand Smoke Exposure: No Recent Foreign Travel: No Contact w/other who traveled: No Recent Hopitalizations: No Recent Infectious Disease Expo: No Immunizations Up To Date Tetanus Booster (TDap): Unknown Date of Pneumonia Vaccine: Apr 19, 2018 Seasonal Allergies Seasonal Allergies: No Past Medical History Surgeries: Tonsillectomy History of Blood Disorders: No Family History Reviewed Nursing Family Hx Review of Systems Constitutional: No chills; dizziness; No fever EENTM: no symptoms reported Respiratory: No cough, No short of breath Cardiovascular: No chest pain, No edema, No Hx of Intervention; palpitations Gastrointestinal: No abdominal pain; nausea, vomiting Genitourinary: no symptoms reported Musculoskeletal: no symptoms reported Skin: no symptoms reported Psychiatric/Neurological: No Symptoms Reported Physical Exam Physical Exam Vital Signs Vital Signs - First Documented 04/18/20 04/19/20 22:08 03:08 Temp 36.5 Pulse 122 Resp 18 B/P (MAP) 132/80 (97) Pulse Ox 96 O2 Delivery Room Air O2 Flow Rate 0 Capillary Refill : Less Than 3 Seconds Height, Weight, BMI Height: '" Weight: lbs. oz. kg; 29.54 BMI Method: General Appearance: No Apparent Distress, WD/WN HEENT: PERRL/EOMI, Moist Mucous Membranes; No Scleral Icterus (L), No Scleral Icterus (R) Neck: Normal Inspection, Supple Respiratory: Lungs Clear, No Accessory Muscle Use, No Respiratory Distress Cardiovascular: No Murmur, Irregularly Irregular, Tachycardia Gastrointestinal: Normal Bowel Sounds, Non Tender, Soft Extremity: Normal Capillary Refill, No Calf Tenderness, No Pedal Edema Neurologic/Psychiatric: Alert, Oriented x3, Normal Mood/Affect Skin: Normal Color, Warm/Dry Results Results/Procedures Labs Laboratory Tests 04/18/20 22:11 04/19/20 03:45 Patient resulted labs reviewed. Imaging: Reviewed Imaging Report Imaging [facility] [place] [place] NAME: MADELINE SPAIN [facility] REC#: [id number] PT STATUS: ADM IN : 1975 PHYSICIAN: CHANCE MARTINEZ MD ADMIT DATE: 04/19/20/ICU Draft Date of Exam:04/19/20 CT ANGIO HEAD/NECK PROCEDURE: CT angiography of the head and CT angiography of the neck with and without contrast. TECHNIQUE: Contiguous noncontrast images were obtained from the skull base through the vertex. After intravenous contrast administration, helical CT angiography of the neck was performed. Source data was reformatted into 3D MIP projections. Delayed post contrast acquisition was also obtained. Auto Exposure Controls were utilized during the CT exam to meet ALARA standards for radiation dose reduction. INDICATION: Disequilibrium with new onset atrial fibrillation. Comparison is made with a a prior brain MRI from 11/29/2016. FINDINGS: The noncontrast CT of the head demonstrates no evidence of an acute intracranial abnormality. There is no evidence of intracranial hemorrhage. There is no mass effect or shift. There is no hydrocephalus. There is no abnormal extra-axial fluid collection. Cramer-white matter differentiation appear maintained without evidence of abnormal low density in the basal ganglia or within the dmitry. Mastoid air cells appear clear. Paranasal sinuses demonstrate some minimal mucosal thickening in the ethmoids. There are no air-fluid levels. Orbital contents unremarkable. CTA demonstrates a three-vessel aortic arch without evidence of significant stenosis at the origins of the great vessels. The vertebral artery origins are also patent. Common carotid arteries unremarkable. There is no significant stenosis at the carotid bifurcations. There is some mild tortuosity of the right internal carotid artery. The vertebral arteries within the neck demonstrate no stenosis or evidence of dissection. Intracranially, there is appropriate flow within the internal carotid arteries. Carotid terminus unremarkable. M1 segment of both middle cerebral arteries widely patent with no occluded M2 branch. Anterior cerebral arteries are patent. Within the posterior circulation, both the vertebral arteries are patent. There is a patent left posterior inferior cerebellar artery. There is a large right anterior inferior cerebellar artery and small left anterior inferior cerebellar artery. The superior cerebellar arteries are patent. Both of the posterior cerebral arteries are patent. There is a origin of the right WELT STITCH CLEANER. There is also a moderate sized left posterior communicating artery. There are no findings of intracranial aneurysm formation. The dural venous sinuses are patent. Postcontrast imaging demonstrates no pathologic intracranial enhancement. Soft tissues of the neck demonstrate no acute process. Lung apices clear. No acute abnormality evident within the cervical spine. IMPRESSION: 1. No CT evidence of an acute intracranial abnormality 2. No evidence of intracranial large vessel occlusion or significant stenosis. 3. No findings of aneurysm formation. 4. Dural venous sinuses patent. 5. No pathologic intracranial enhancement 6. CTA neck demonstrates no significant stenosis or dissection. 7. I agree with the preliminary [facility] report. Dictated on workstation # [id number] Dict: 04/19/20 0736 Trans: 04/19/20 0812 [facility] [id number] Interpreted by: KIRBY NUGENT MD Electronically signed by: Assessment/Plan Admission Diagnosis A-fib with RVR Admission Status: Inpatient Order (span 2 midnights) Reason for Inpatient Admission: see below Assessment and Plan A-fib with RVR New onset Currently on cardizem gtt Rate improving but still intermittently very tachycardiac Cardiology consulted, appreciate recs Echo ordered TSH normal Eliquis for stroke ppx Nausea and vomiting Zofran prn Due to above Improved with rate control Transaminitis Likely due to tachycardia Check in AM DVT ppx: On eliquis as above Diagnosis/Problems Diagnosis/Problems (1) Atrial fibrillation with RVR Status: Acute (2) Vomiting Status: Acute Qualifiers: Vomiting type: unspecified Vomiting Intractability: non-intractable Nausea presence: with nausea Qualified Codes: R11.2 - Nausea with vomiting, unspecified (3) Vertigo Status: Acute Clinical Quality Measures DVT/VTE Risk/Contraindication: Risk Factor Score Per Nursin RFS Level Per Nursing on Admit: 1=Low/No VTE PPX Copy Copies To 1: TERRANCE COYNE KATELYN M MD Apr 19, 2020 08:49
--- NOTE | 2020-04-19 08:52 | Diagnostic Imaging Report ---
EXAMINATION: Portable chest INDICATION: New onset atrial fibrillation. Chest pain. FINDINGS: Heart size appears appropriate. There are no findings of overt failure. Lung volumes are diminished with some apparent mild right basilar atelectasis. There is no large effusion. There is no pneumothorax. IMPRESSION: Low lung volumes with right base atelectasis. Heart size is appropriate without evidence to suggest current failure. Dictated by: Dictated on workstation # [id number]
[2020-04-19] MEDS ORDERED: MELATONIN 3 MG TABLET PO PRN (09:00)
[2020-04-19] MEDS ORDERED: ONDANSETRON 4 MG/2 ML (SDV) Z0FRAN IV PRN (09:00)
[2020-04-19] MEDS ORDERED: MILK OF MAGNESIA 400 MG/5 ML 30 ML UDC PO PRN (09:00)
[2020-04-19] MEDS ORDERED: ANTACID SUSP 30 ML UDC (MYLANTA) PO PRN (09:00)
[2020-04-19] MEDS ORDERED: ACETAMINOPHEN 325 MG TABLET PO PRN (09:00)
[2020-04-19] MEDS ORDERED: BENZONATATE 100 MG (TESSALON) CAPSULE PO PRN (09:00)
[2020-04-19] MEDS ORDERED: CATHETER FLUSH 10 ML SYR IV PRN (09:00)
[2020-04-19] MEDS ORDERED: APIXABAN 5 MG (ELIQUIS) TABLET PO NR (12:30)
--- NOTE | 2020-04-19 12:55 | Consultation-Cardiology ---
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 Has had such symptoms intermittently for several months, more severe and unremitting yesterday. Also has had an intermittent feeling of heart flutters, as if the heart is irregular. No cp or syncope or shortness of breath or leg swelling. Review of Systems-Cardiology Review of Systems Constitutional: No malaise, No tiredness, No weight loss, No weight gain Eyes: No vision change Ears/Nose/Throat: No ear discharge, No nasal drainage, No recent hearing loss Respiratory: As described under HPI Cardiovascular: As described under HPI Gastrointestinal: No constipation, No diarrhea, No vomiting Genitourinary: No dysuria, No hematuria, No urine frequency changes Skin: No rash, No ulcerations Psychiatric/Neurological: other (dizzness/vertigo as described above); No seizure, No focal weakness, No syncope Hematologic: No bleeding abnormalities [id number] Hx Patient Social History Employed/Student: employed Alcohol Use: Denies Use Recreational Drug Use: No Smoking Status: Never a Smoker 2nd Hand Smoke Exposure: No Recent Foreign Travel: No Recent Infectious Disease Expo: No Hospitalization with Isolation: Denies Immunizations Up To Date Tetanus Booster (TDap): Unknown Date of Pneumonia Vaccine: Apr 19, 2018 Past Medical History PMH As described under Assessment. Family Medical History Family Medical History: Does not report fam history or early CAD or SCD Allergies and Home Medications Allergies Coded Allergies: No Known Drug Allergies (Unverified , 07/04/10) Home Medications Alprazolam 0.5 Mg Tablet, 1 TAB PO ONCE, (Reported) Ciprofloxacin 500 Mg Tablet, 1 TAB PO BID Prescribed by: KAVIN GARCIA on 07/05/10 004 Hydrocodone Bit/Acetaminophen 1 Each Capsule, 2 EACH PO Q6HR PRN Prescribed by: KAVIN GARCIA on 07/05/1042 Ibuprofen 600 Mg Tab, 600 MG PO ONCE, (Reported) Meclizine HCl 25 Mg Tablet, 25 MG PO TID PRN for DIZZINESS Prescribed by: JAYCE MCFADDEN on 04/18/202225 Naproxen 500 Mg Tablet, 1 EACH PO BID PRN Prescribed by: KAVIN GARCIA on 07/05/1043 Phenazopyridine Hcl 100 Mg Tablet, 1 TAB PO TID PRN Prescribed by: KAVIN GARCIA on 07/05/1042 Promethazine HCl 25 Mg Tablet, 25 MG PO Q8H PRN for NAUSEA/VOMITING Prescribed by: JAYCE MCFADDEN on 04/18/202225 Patient Home Medication List Home Medication List Reviewed: Yes Physical Exam-Cardiology Physical Exam Vital Signs/I&O 04/19/20 04/19/20 04/19/20 04/19/20 03:08 03:17 03:21 03:30 Temp 36.9 Pulse 68 106 99 114 Resp 16 25 26 B/P (MAP) 102/64 137/117 (124) 119/86 (97) Pulse Ox 99 90 92 O2 Delivery Room Air Room Air O2 Flow Rate 0 04/19/20 04/19/20 04/19/20 04/19/20 03:30 03:39 03:43 03:45 Temp 36.7 Pulse 118 Resp 26 B/P (MAP) 122/112 (115) Pulse Ox 96 92 O2 Delivery Room Air Room Air Room Air Room Air 04/19/20 04/19/20 04/19/20 04/19/20 04:00 05:00 06:00 06:47 Pulse 116 86 81 78 Resp 23 15 14 B/P (MAP) 107/93 (98) 90/65 (73) 101/84 (90) Pulse Ox 94 94 97 O2 Delivery Room Air Room Air Room Air 04/19/20 04/19/20 04/19/20 04/19/20 07:00 07:17 08:00 08:15 Temp 36.5 Pulse 133 84 Resp 33 13 B/P (MAP) 104/69 (81) 133/86 (102) Pulse Ox 94 96 96 O2 Delivery Room Air Room Air Room Air 04/19/20 04/19/20 04/19/20 04/19/20 09:00 10:00 11:00 11:11 Temp 36.9 Pulse 81 76 80 Resp 15 17 17 B/P (MAP) 86/69 (75) 104/60 (75) 93/57 (69) Pulse Ox 94 94 95 O2 Delivery Room Air Room Air Room Air 04/19/20 00:00 Intake Total 1000 ml Balance 1000 ml Capillary Refill : Less Than 3 Seconds Constitutional: AAO x 3, well-developed, well-nourished HEENT: EOMI, hearing is well preserved Neck: No carotid bruit; carotid pulses are 2 + bilaterally, with good upstrokes Respiratory: No accessory muscle use; other (good bilat air entry) Cardiovascular: regular rate-rhythm, S1 and S2, systolic murmur (faint MARILYN at card base) Gastrointestinal: No tender; soft; No guarding, No rebound; audible bowel sounds Extremities: No clubbing, No cyanosis, No significant edema Neurologic/Psychiatric: oriented x 3, other (moves all limbs equally) Skin: No rash, No ulcerations Data Review Labs Laboratory Tests 04/18/20 22:11: White Blood Count 10.2, Red Blood Count 5.91H, Hemoglobin 17.2, Hematocrit 50, Mean Corpuscular Volume 85, Mean Corpuscular Hemoglobin 29, Mean Corpuscular Hemoglobin Concent 34, Red Cell Distribution Width 14.0, Platelet Count 191, Mean Platelet Volume 9.8, Neutrophils (%) (Auto) 71, Lymphocytes (%) (Auto) 19, Monocytes (%) (Auto) 8, Eosinophils (%) (Auto) 2, Basophils (%) (Auto) 1, N eutrophils # (Auto) 7.3, Lymphocytes # (Auto) 1.9, Monocytes # (Auto) 0.8, Eosinophils # (Auto) 0.2, Basophils # (Auto) 0.1, Sodium Level 141, Potassium Level 4.5, Chloride Level 108H, Carbon Dioxide Level 19L, Anion Gap 14, Blood Urea Nitrogen 13, Creatinine 1.13, Estimat Glomerular Filtration Rate > 60, BUN/Creatinine Ratio 12, Glucose Level 132H, Calcium Level 9.1, Corrected Calcium , Total Bilirubin 0.5, Aspartate Amino Transf (AST/SGOT) 44H, Alanine Aminotransferase (ALT/SGPT) 80H, Alkaline Phosphatase 68, Total Protein 8.0, Albumin 4.6H 04/19/20 03:45: White Blood Count 9.1, Red Blood Count 5.51, Hemoglobin 16.2, Hematocrit 47, Mean Corpuscular Volume 85, Mean Corpuscular Hemoglobin 29, Mean Corpuscular Hemoglobin Concent 35, Red Cell Distribution Width 13.9, Platelet Count 211, Mean Platelet Volume 10.4, Neutrophils (%) (Auto) 69, Lymphocytes (%) (Auto) 22, Monocytes (%) (Auto) 7, Eosinophils (%) (Auto) 2, Basophils (%) (Auto) 1, Neutrophils # (Auto) 6.3, Lymphocytes # (Auto) 2.0, Monocytes # (Auto) 0.7, Eosinophils # (Auto) 0.2, Basophils # (Auto) 0.1, Sodium Level 141, Potassium Level 4.5, Chloride Level 108H, Carbon Dioxide Level 21, Anion Gap 12, Blood Urea Nitrogen 12, Creatinine 1.00, Estimat Glomerular Filtration Rate > 60, BUN/Creatinine Ratio 12, Glucose Level 99, Calcium Level 8.4L, Prothrombin Time 14.0, INR Comment 1.0, Activated Partial Thromboplast Time 30, Phosphorus Level 3.6, Magnesium Level 1.9, Myoglobin 48.0, Troponin I < 0.028, TSH [place] Testing 1.65 Laboratory Tests 04/18/20 22:11 04/19/20 03:45 A/P-Cardiology Assessment/Admission Diagnosis Atrial fibrillation, probably PAF, age of this episode unclear (first diagnosed on 04/18/20) TSH normal on 04/18/20 Discussion and Recomendations * Stroke prophylaxis with oral apixaban * Continue iv dilt for vent rate control * ERIN and probable electric cardioversion tomorrow if remains in A Fib * Monitor labs * TTE Clinical Quality Measures DVT/VTE Risk/Contraindication: Risk Factor Score Per Nursin RFS Level Per Nursing on Admit: 1=Low/No VTE PPX SHAILESH GOLDSTEIN [facility] Apr 19, 2020 12:54
[2020-04-19] MEDS: APIXABAN 5 MG (ELIQUIS) TABLET PO SCH (20:04)
--- NOTE | 2020-04-19 20:55 | NUR ---
PT CONVERTED TO SINUS RHYTHM AT THIS TIME. EKG OBTAINED PER PROTOCOL. IV CARDIZEM DOSE DECREASED.
[2020-04-20] VITALS (13 sets, daily range): BP systolic 99–166; BP diastolic 51–93
[2020-04-20 03:59] LABS: BASOPHILS # (AUTO) 0.1 10^3/uL (0.0-0.1); BASOPHILS % (AUTO) 1 % (0-10); EOSINOPHILS # (AUTO) 0.6 10^3/uL (0.0-0.3); EOSINOPHILS % (AUTO) 8 % (0-10); HEMATOCRIT 45 % (40-54); LYMPHOCYTES # (AUTO) 2.6 X 10^3 (1.0-4.0); LYMPHOCYTES % (AUTO) 31 % (12-44); MEAN CORPUSCULAR HEMOGLOBIN 29 PG (25-34); MEAN CORPUSCULAR HGB CONC 34 G/DL (32-36); MEAN CORPUSCULAR VOLUME 86 FL (80-99); MEAN PLATELET VOLUME 9.7 FL (7.4-10.4); MONOCYTES # (AUTO) 0.8 X 10^3 (0.0-1.0); MONOCYTES % (AUTO) 10 % (0-12); NEUTROPHILS # (AUTO) 4.1 X 10^3 (1.8-7.8); NEUTROPHILS % (AUTO) 50 % (42-75); PLATELET COUNT 174 10^3/uL (130-400); WHITE BLOOD COUNT 8.3 10^3/uL (4.3-11.0)
[2020-04-20 04:19] LABS: ALBUMIN 3.6 GM/DL (3.2-4.5); CHLORIDE 111 MMOL/L (98-107); POTASSIUM 3.8 MMOL/L (3.6-5.0); SODIUM 142 MMOL/L (135-145)
[2020-04-20 04:20] LABS: CALCIUM 7.9 MG/DL (8.5-10.1)
[2020-04-20 04:21] LABS: TRIGLYCERIDES 85 MG/DL (<150); VLDL CHOLESTEROL 17 MG/DL (5-40)
[2020-04-20 04:22] LABS: GLUCOSE 91 MG/DL (70-105); TOTAL PROTEIN 6.1 GM/DL (6.4-8.2)
[2020-04-20 04:23] LABS: BILIRUBIN,TOTAL 0.3 MG/DL (0.1-1.0); CARBON DIOXIDE 21 MMOL/L (21-32)
[2020-04-20 04:25] LABS: ALKALINE PHOSPHATASE 54 U/L (40-136); CREATININE SERUM 1.06 MG/DL (0.60-1.30); GFR ESTIMATED > 60; PHOSPHORUS 3.2 MG/DL (2.3-4.7)
[2020-04-20 04:26] LABS: CHOLESTEROL 182 MG/DL (< 200)
[2020-04-20 04:27] LABS: BUN/CREATININE RATIO 13
[2020-04-20 04:28] LABS: HDL CHOLESTEROL 44 MG/DL (40-60)
[2020-04-20 04:29] LABS: ALANINE AMINOTRANSFERASE 55 U/L (0-55); MAGNESIUM 1.9 MG/DL (1.6-2.4)
[2020-04-20 04:48] LABS: ANISOCYTOSIS SLIGHT; ATYPICAL LYMPHOCYTES 5 %; BAND NEUTROPHILS 2 %; BASOPHILS % (MANUAL) 2 %; BLAST CELLS 1 %; EOSINOPHILS % (MANUAL) 7 %; HYPOCHROMASIA SLIGHT; LYMPHOCYTES % (MANUAL) 29 %; MICROCYTOSIS SLIGHT; MONOCYTES % (MANUAL) 9 %; NEUTROPHILS % (MANUAL) 46 %
--- NOTE | 2020-04-20 07:26 | Diagnostic Imaging Report ---
REASON FOR EXAMINATION: New onset atrial fibrillation. Upright AP portable chest was obtained and compared to 04/19/2020. Heart size is stable with right lower lobe atelectasis again noted. No heart failure or focal consolidating pneumonia. No pneumothorax or acute osseous finding. Not much overall change. IMPRESSION: 1. Low lung volumes demonstrated today with continued right lower lobe atelectasis but no focal consolidating pneumonia or acute heart failure. Dictated by: Dictated on workstation # [id number]
[2020-04-20] MEDS: APIXABAN 5 MG (ELIQUIS) TABLET PO SCH (09:28)
[2020-04-20] MEDS ORDERED: APIX5TAB PO (09:46)
[2020-04-20] MEDS ORDERED: DILT240C86 PO (09:46)
--- NOTE | 2020-04-20 10:09 | Progress Note - Cardiology ---
Cardiology SOAP Progress Note Subjective: No cp or palp or syncope or shortness of breath No focal weakness No n/v/d Feels well and wishes to go home Objective: I&O/Vital Signs 04/19/20 04/19/20 04/19/20 04/20/20 23:00 23:51 23:56 00:00 Temp 36.3 Pulse 66 62 Resp 24 22 B/P (MAP) 120/73 (89) 139/88 (105) Pulse Ox 94 95 94 O2 Delivery Room Air Room Air Room Air 04/20/20 04/20/20 04/20/20 04/20/20 01:00 01:00 02:00 03:00 Pulse 60 60 58 57 Resp 18 15 12 B/P (MAP) 112/51 (71) 99/54 (69) 115/66 (82) Pulse Ox 94 93 93 O2 Delivery Room Air Room Air Room Air 04/20/20 04/20/20 04/20/20 04/20/20 03:31 03:31 04:00 05:00 Temp 36.6 Pulse 58 61 Resp 14 15 B/P (MAP) 118/93 (101) 122/76 (91) Pulse Ox 95 93 92 O2 Delivery Room Air Room Air Room Air 04/20/20 04/20/20 04/20/20 04/20/20 06:00 07:00 08:00 08:00 Temp 36.0 Pulse 57 67 Resp 15 17 B/P (MAP) 123/84 (97) 102/52 (69) Pulse Ox 94 94 95 O2 Delivery Room Air Room Air Room Air 04/20/20 04/20/20 08:00 09:00 Pulse 84 75 Resp 15 22 B/P (MAP) 111/61 (78) 114/78 (90) Pulse Ox 94 95 O2 Delivery Room Air Room Air 04/20/20 00:00 Intake Total 1480 ml Output Total 745 ml Balance 735 ml Constitutional: AAO x 3, well-developed, well-nourished Respiratory: No accessory muscle use; other (good bilat air entry) Cardiovascular: regular rate-rhythm, S1 and S2, systolic murmur (faint MARILYN at card base) Gastrointestional: No tender; soft; No guarding, No rebound; audible bowel soun ds Extremities: No clubbing, No cyanosis, No significant edema Neurologic/Psychiatric: oriented x 3, other (moves all limbs equally) Skin: No rash, No ulcerations Results/Procedures: Labs Laboratory Tests 04/20/20 03:49: White Blood Count 8.3, Red Blood Count 5.21, Hemoglobin 15.0, Hematocrit 45, Mean Corpuscular Volume 86, Mean Corpuscular Hemoglobin 29, Mean Corpuscular Hemoglobin Concent 34, Red Cell Distribution Width 14.0, Platelet Count 174, Mean Platelet Volume 9.7, Neutrophils (%) (Auto) 50, Lymphocytes (%) (Auto) 31, Monocytes (%) (Auto) 10, Eosinophils (%) (Auto) 8, Basophils (%) (Auto) 1, Neutrophils # (Auto) 4.1, Lymphocytes # (Auto) 2.6, Monocytes # (Auto) 0.8, Eosinophils # (Auto) 0.6H, Basophils # (Auto) 0.1, Neutrophils % (Manual) 46, Lymphocytes % (Manual) 29, Monocytes % (Manual) 9, Eosinophils % (Manual) 7, Basophils % (Manual) 2, Band Neutrophils 2, Atypical Lymphocytes 5, Blast Cells 1, Hypochromasia SLIGHT, Anisocytosis SLIGHT, Microcytosis SLIGHT, Sodium Level 142, Potassium Level 3.8, Chloride Level 111H, Carbon Dioxide Level 21, Anion Gap 10, Blood Urea Nitrogen 14, Creatinine 1.06, Estimat Glomerular Filtration Rate > 60, BUN/Creatinine Ratio 13, Glucose Level 91, Calcium Level 7.9L, Corrected Calcium 8.2L, Phosphorus Level 3.2, Magnesium Level 1.9, Total Bilirubin 0.3, Aspartate Amino Transf (AST/SGOT) 26, Alanine Aminotransferase (ALT/SGPT) 55, Alkaline Phosphatase 54, Total Protein 6.1L, Albumin 3.6, Triglycerides Level 85, Cholesterol Level 182, LDL Cholesterol Direct 134H, VLDL Cholesterol 17, HDL Cholesterol 44 Microbiology 04/19/20 MRSA Screen - Final, Complete MRSA not isolated Laboratory Tests 04/18/20 22:11 04/19/20 03:45 04/20/20 03:49 A/P: Assessment: PAF (first diagnosed on 04/18/20). Now in NSR TSH normal on 04/18/20 Echo on 04/20/20: LVEF 60-65%, mild enlargement of LA, mild to mod AI, PASP estimated to be within normal limits Plan: * Stroke prophylaxis with oral apixaban * Change dilt to oral * MPI and sleep studies recommended as outpatient * Close outpt f/u advised for now * I discussed his CV issues in detail with him and with SHAILESH Cavazos MD FACP FAC CCDS Apr 20, 2020 10:09
--- NOTE | 2020-04-20 10:22 | NUR ---
SPOKE WITH THE PT AND HE DENIES TAKING ANY PRESCRIPTION OR OTC MEDICATION BEFORE HIS HOSPITALIZATION THERE WERE MEDICATIONS LISTED ON THE MED REC THAT HE IS BEING DISCHARGED WITH: ELIQUIS AND DILTIAZEM- AND WHEN HE WAS IN THE ED PRIOR TO ADMISSION Eduardo MCFADDEN ISSUED SCRIPTS FOR MECLIZINE AND PROMETHAZINE
--- NOTE | 2020-04-20 11:30 | NUR ---
THIS NURSE EDUCATED PT ON DISCHARGE INSTRUCTIONS AND HOME MEDICATIONS. PT INFORMED STRESS TEST IS SCHEDULED FOR 11:30 AM TOMORROW. PT WILL HAVE TO ARRIVE AT 11:00. PT STATED UNDERSTANDING.
--- NOTE | 2020-04-20 12:21 | Discharge Summary ---
Discharge Summary Hospital Course Was the Problem List Reviewed?: Yes Problems/Dx: (1) Atrial fibrillation with RVR Status: Acute (2) Vomiting Status: Acute Qualifiers: Qualified Codes: R11.2 - Nausea with vomiting, unspecified (3) Vertigo Status: Acute Hospital Course Date of Admission: Apr 19, 2020 at 02:21 Admission Diagnosis : atrial fibrillation with rapid ventricular response Family Physician/Provider: Charisse Coyne DO Date of Discharge: 04/20/20 Discharge Diagnosis: atrial fibrillation with rapid ventricular response Hospital Course: Cristian Huizar is a 45-year-old male who was admitted with atrial fibrillation with rapid ventricular response. Cardiology was consulted and assisted with his care. He was started on IV Cardizem and he spontaneously converted to normal sinus rhythm. He was transitioned to oral Cardizem and started on Eliquis for stroke prophylaxis. He will follow up with cardiology as an outpatient for a stress test. He may be a candidate for aspirin stroke prophylaxis depending on his stress test results. He should follow-up with Dr. Coyne and a couple weeks. Labs and Pending Lab Test: Laboratory Tests 04/20/20 03:49: White Blood Count 8.3, Red Blood Count 5.21, Hemoglobin 15.0, Hematocrit 45, Mean Corpuscular Volume 86, Mean Corpuscular Hemoglobin 29, Mean Corpuscular Hemoglobin Concent 34, Red Cell Distribution Width 14.0, Platelet Count 174, Mean Platelet Volume 9.7, Neutrophils (%) (Auto) 50, Lymphocytes (%) (Auto) 31, Monocytes (%) (Auto) 10, Eosinophils (%) (Auto) 8, Basophils (%) (Auto) 1, Neutrophils # (Auto) 4.1, Lymphocytes # (Auto) 2.6, Monocytes # (Auto) 0.8, Eosinophils # (Auto) 0.6H, Basophils # (Auto) 0.1, Neutrophils % (Manual) 46, Lymphocytes % (Manual) 29, Monocytes % (Manual) 9, Eosinophils % (Manual) 7, Basophils % (Manual) 2, Band Neutrophils 2, Atypical Lymphocytes 5, Blast Cells 1, Hypochromasia SLIGHT, Anisocytosis SLIGHT, Microcytosis SLIGHT, Sodium Level 142, Potassium Level 3.8, Chloride Level 111H, Carbon Dioxide Level 21, Anion Gap 10, Blood Urea Nitrogen 14, Creatinine 1.06, Estimat Glomerular Filtration Rate > 60, BUN/Creatinine Ratio 13, Glucose Level 91, Calcium Level 7.9L, Corrected Calcium 8.2L, Phosphorus Level 3.2, Magnesium Level 1.9, Total Bilirubin 0.3, Aspartate Amino Transf (AST/SGOT) 26, Alanine Aminotransferase (ALT/SGPT) 55, Alkaline Phosphatase 54, Total Protein 6.1L, Albumin 3.6, Triglycerides Level 85, Cholesterol Level 182, LDL Cholesterol Direct 134H, VLDL Cholesterol 17, HDL Cholesterol 44 Microbiology 04/19/20 MRSA Screen - Final, Complete MRSA not isolated Home Meds Active Cardizem Cd (Diltiazem HCl) 240 Mg Cap.er.24h 240 Mg PO DAILY Eliquis (Apixaban) 5 Mg Tablet 5 Mg PO BID Assessment/Pt Instructions take medications as prescribed. Follow-up with your primary care physician. Follow-up with Dr. Munoz for a stress test. Discharge Planning: <30 minutes discharge planning Discharge Instructions Discharge Diet: No Restrictions Activity as Tolerated: Yes Discharge Physical Examination Vital Signs Vital Signs Date Time Temp Pulse Resp B/P (MAP) Pulse Ox O2 Delivery O2 Flow Rate FiO2 04/20/20 11:00 77 17 117/84 (95) 95 Room Air 04/20/20 08:00 36.0 04/19/20 03:08 0 General Appearance: No Apparent Distress, WD/WN HEENT: PERRL/EOMI, Pharynx Normal Respiratory: Lungs Clear, Normal Breath Sounds, No Respiratory Distress Cardiovascular: Regular Rate, Rhythm, No Edema, No Murmur Gastrointestinal: Normal Bowel Sounds, Non Tender, Soft Extremity: Normal Inspection, Non Tender, No Pedal Edema Skin: Normal Color, Warm/Dry Neurologic/Psychiatric: Alert, Oriented x3, No Motor/Sensory Deficits, Normal Mood/Affect Allergies: Coded Allergies: No Known Drug Allergies (Unverified , 07/04/10) Copy Copies To 1: CHARISSE COYNE DO Discharge Summary Date of Admission Apr 19, 2020 at 02:21 Date of Discharge Discharge Date: Apr 20, 2020 Discharge Time: 10:10 Admission Diagnosis A-fib with RVR Consults/Procedures Consulations cardiology Discharge Diagnosis (1) Atrial fibrillation with RVR Status: Acute (2) Vomiting Status: Acute Qualifiers: Qualified Codes: R11.2 - Nausea with vomiting, unspecified (3) Vertigo Status: Acute Clinical Quality Measures DVT/VTE Risk/Contraindication: Risk Factor Score Per Nursin RFS Level Per Nursing on Admit: 1=Low/No VTE PPX LOVE JAFFE MD Apr 20, 2020 12:07
--- NOTE | 2020-04-20 13:32 | NUR ---
THIS NURSE NOTIFIED [employer] CONSULTANT WITH DR GOLDSTEIN PT WAS NOT GOING TO BE ABLE TO GET PREAUTHORIZATION FOR STRESS TEST SCHEDULED FOR TOMORROW. PT WILL HAVE TO SEE DR GOLDSTEIN IN THE OFFICE FIRST. LOREN SAID SHE WILL CALL AND FIND OUT. [employer] SAL[employer] CONSULTANT ALSO SAID SHE WOULD UP DATE THE PT.
== END 2020-04-20 12:03 | disposition home or self-care (01) | DRG 310 ==
LOC: EDUNIT# 22:03 → ER 22:04 → ICU 04-19 02:21
PROVIDERS: ADMIT Family Medicine; ATTEND Family Medicine
DX: I48.0 Paroxysmal atrial fibrillation (principal); R11.2 Nausea with vomiting, unspecified; R42 Dizziness and giddiness; R74.0 Nonspecific elevation of levels of transaminase and lactic acid dehydrogenase [LDH]
CPT/HCPCS: 36415; 70496; 70498; 71045; 80048; 80053; 80061; 83735; 83874; 84100; 84443; 84484; 85007; 85025; 85027; 85610; 85730; 87081; 93005; 93041; 93306

== ENCOUNTER → 2020-04-21 | Outpatient (CLI) | payer OTHER ==
[~2020-04-21] MED LIST changes: +APIX5TAB PO; +CATHETER FLUSH 10 ML SYR IV PRN; +DILT240C86 PO; +MECL-149 PO; +PROM25TA14 PO; +REGADENOSON 0.4 MG/5 ML SYR (LEXISCAN) IV ONE
--- NOTE | 2020-04-24 17:03 | STRESS TEST ---
DATE OF SERVICE: 04/21/2020 RESTING AND POST REGADENOSON TECHNETIUM-99M TETROFOSMIN SPECT IMAGING ORDERING PHYSICIAN: Sherry Pryor APRN PRIMARY PHYSICIAN: Dr. Coyne. OTHER PHYSICIAN: Dr. Goldstein. CLINICAL DIAGNOSES: Atrial fibrillation. Baseline images were carried out after injection of 10.15 mCi of technetium-99m Tetrofosmin. This was followed by 0.4 mg regadenoson and 31 mCi of technetium-99m Tetrofosmin for stress imaging. The electrocardiogram showed sinus rhythm at baseline. It did not change significantly with the regadenoson infusion. The patient tolerated the procedure well. Review of images at rest and following stress indicate some diaphragmatic attenuation both at rest and following regadenoson infusion. There also appears to be a minimal transient anteroseptal perfusion defect. Gated images show normal global left ventricular systolic function with normal regional wall motion. Left ventricular ejection fraction is calculated to be 54%. Left ventricular end diastolic volume is 133 mL. TID is absent (1.14). 1. This test study is suggestive of minimal anteroseptal ischemia. 2. Normal regional wall motion, normal global left ventricular systolic function with ejection fraction of 54%. 3. Mild to moderate cardiomegaly. Job ID: [id number] DocumentID: [id number] Dictated Date: 04/24/2020 12:58:20 Examination Grader Date: 04/24/2020 17:01:57 Dictated By: SHAILESH GOLDSTEIN MD, MA, FACP, FACC,
== END ==
LOC: CARD 07:24
PROVIDERS: ATTEND Nurse Practitioner Family
DX: I48.91 Unspecified atrial fibrillation (principal); I51.7 Cardiomegaly
CPT/HCPCS: 78452; 93017; A9502

== ENCOUNTER 2020-05-26 13:00 | Emergency (ER) | payer OTHER ==
[~2020-05-26] VITALS: Ht 178 cm; Wt 91.0 kg
[~2020-05-26 13:00] MED LIST changes: -CATHETER FLUSH 10 ML SYR IV PRN; -REGADENOSON 0.4 MG/5 ML SYR (LEXISCAN) IV ONE
[2020-05-26] MEDS ORDERED: ONDANSETRON 4 MG/2 ML (SDV) Z0FRAN IVP ONE (13:15)
--- NOTE | 2020-05-26 13:18 | ED General ---
General Chief Complaint: Dizziness/Syncope Stated Complaint: DIZZINESS;NAUSEA Nursing Triage Note: PT STATES DIZZINESS AND NAUSEA THAT STARTED THIS A.M. HX OF A-FIB Nursing Sepsis Screen: No Definite Risk Source of Information: Patient Exam Limitations: No Limitations History of Present Illness Date Seen by Provider: May 26, 2020 Time Seen by Provider: 13:16 Initial Comments To ER with reports of dizziness and nausea. The symptoms began this morning. These are concerning because a few months ago these were his symptoms when he was diagnosed with atrial fibrillation with rapid ventricular response. He was subsequently admitted to the hospital but converted to sinus rhythm the next day. He is managed on Toprol-XL 100 mg daily and Eliquis 5 mg twice a day. He denies chest pain. Denies fevers chills or cough. Timing/Duration: 1-2 Days Severity: Moderate Allergies and Home Medications Allergies Coded Allergies: No Known Drug Allergies (Unverified , 07/04/10) Home Medications Apixaban 5 Mg Tablet, 5 MG PO BID Prescribed by: LOREN MEADE on 04/20/20945 Diltiazem HCl 240 Mg Cap.er.24h, 240 MG PO DAILY Prescribed by: LOREN MEADE on 04/20/20945 Patient Home Medication List Home Medication List Reviewed: Yes Review of Systems Review of Systems Constitutional: see HPI EENTM: see HPI Respiratory: no symptoms reported Cardiovascular: see HPI Genitourinary: no symptoms reported Musculoskeletal: no symptoms reported Skin: no symptoms reported Psychiatric/Neurological: No Symptoms Reported Hematologic/Lymphatic: No Symptoms Reported Immunological/Allergic: no symptoms reported Past Dadwxag-Xonmlr-Phqxfo Hx Patient Social History Alcohol Use: Denies Use Recreational Drug Use: No Smoking Status: Never a Smoker 2nd Hand Smoke Exposure: No Recent Foreign Travel: No Contact w/Someone Who Travel: No Recent Infectious Disease Expo: No Recent Hopitalizations: Yes (04/2020) Immunizations Up To Date Tetanus Booster (TDap): Unknown Date of Pneumonia Vaccine: Apr 19, 2018 Seasonal Allergies Seasonal Allergies: No Past Medical History Surgeries: Yes Tonsillectomy Respiratory: No Cardiac: Yes Atrial Fibrillation Neurological: Yes Headaches /Migraines Genitourinary: Yes Kidney Stones Gastrointestinal: No Musculoskeletal: No Endocrine: No HEENT: No Cancer: No Psychosocial: No Integumentary: No Blood Disorders: No Physical Exam Vital Signs Vital Signs - First Documented 05/26/20 13:08 Temp 35.6 Pulse 62 Resp 18 B/P (MAP) 139/95 (110) Pulse Ox 99 O2 Delivery Room Air Capillary Refill : Less Than 3 Seconds Height, Weight, BMI Height: '" Weight: lbs. oz. kg; 28.00 BMI Method: General Appearance: No Apparent Distress, WD/WN Eyes: Bilateral Eye Normal Inspection, Bilateral Eye PERRL, Bilateral Eye EOMI Neck: Full Range of Motion, Normal Inspection Respiratory: Lungs Clear, Normal Breath Sounds, No Accessory Muscle Use, No Respiratory Distress Cardiovascular: Regular Rate, Rhythm, Normal Peripheral Pulses, Other (rate of 64 sinus) Gastrointestinal: Non Tender, Soft Extremity: Normal Capillary Refill, Normal Inspection Neurologic/Psychiatric: Alert, Oriented x3 Skin: Normal Color, Warm/Dry Progress/Results/Core Measures Suspected Sepsis Recent Fever Within 48 Hours: No Infection Criteria Present: None New/Unexplained Altered Menta: No Sepsis Screen: No Definite Risk SIRS Temperature: Pulse: 62 Respiratory Rate: 18 Laboratory Tests 05/26/20 13:15: White Blood Count 6.0 Blood Pressure 139 /95 Mean: 110 Laboratory Tests 05/26/20 13:15: Creatinine 1.19, INR Comment 1.2, Platelet Count 169, Total Bilirubin 0.5 Results/Orders Lab Results Laboratory Tests Test 05/26/20 13:15 Range/Units White Blood Count 6.0 4.3-11.0 10^3/uL Red Blood Count 5.44 4.35-5.85 10^6/uL Hemoglobin 15.6 13.3-17.7 G/DL Hematocrit 47 40-54 % Mean Corpuscular Volume 86 80-99 FL Mean Corpuscular Hemoglobin 29 25-34 PG Mean Corpuscular Hemoglobin Concent 34 32-36 G/DL Red Cell Distribution Width 14.1 10.0-14.5 % Platelet Count 169 130-400 10^3/uL Mean Platelet Volume 9.7 7.4-10.4 FL Neutrophils (%) (Auto) 56 42-75 % Lymphocytes (%) (Auto) 27 12-44 % Monocytes (%) (Auto) 10 0-12 % Eosinophils (%) (Auto) 6 0-10 % Basophils (%) (Auto) 1 0-10 % Neutrophils # (Auto) 3.4 1.8-7.8 X 10^3 Lymphocytes # (Auto) 1.6 1.0-4.0 X 10^3 Monocytes # (Auto) 0.6 0.0-1.0 X 10^3 Eosinophils # (Auto) 0.4 H 0.0-0.3 10^3/uL Basophils # (Auto) 0.1 0.0-0.1 10^3/uL Prothrombin Time 15.4 H 12.2-14.7 SEC INR Comment 1.2 0.8-1.4 Activated Partial Thromboplast Time 35 24-35 SEC Sodium Level 140 135-145 MMOL/L Potassium Level 4.1 3.6-5.0 MMOL/L Chloride Level 104 98-107 MMOL/L Carbon Dioxide Level 28 21-32 MMOL/L Anion Gap 8 5-14 MMOL/L Blood Urea Nitrogen 13 7-18 MG/DL Creatinine 1.19 0.60-1.30 MG/DL Estimat Glomerular Filtration Rate > 60 BUN/Creatinine Ratio 11 Glucose Level 110 H 70-105 MG/DL Calcium Level 8.8 8.5-10.1 MG/DL Corrected Calcium 8.6 8.5-10.1 MG/DL Magnesium Level 1.9 1.6-2.4 MG/DL Total Bilirubin 0.5 0.1-1.0 MG/DL Aspartate Amino Transf (AST/SGOT) 43 H 5-34 U/L Alanine Aminotransferase (ALT/SGPT) 57 H 0-55 U/L Alkaline Phosphatase 60 40-136 U/L Troponin I < 0.028 <0.028 NG/ML B-Type Natriuretic Peptide 29.7 <100.0 PG/ML Total Protein 7.5 6.4-8.2 GM/DL Albumin 4.3 3.2-4.5 GM/DL My Orders Orders - JAYCE MCFADDEN FACING BASTER Cbc With Automated Diff (05/26/20 13:10) Magnesium (05/26/20 13:10) Ekg Tracing (05/26/20 13:10) Comprehensive Metabolic Panel (05/26/20 13:10) Protime With Inr (05/26/20 13:10) Partial Thromboplastin Time (05/26/20 13:10) Monitor-Rhythm Ecg Trace Only (05/26/20 13:10) Ed Iv/Invasive Line Start (05/26/20 13:10) BNP (05/26/20 13:10) Troponin I (05/26/20 13:10) Ondansetron Injection (Zofran Injectio (05/26/20 13:15) Medications Given in ED Current Medications Medications Dose Ordered Sig/Arminda Route Start Time Stop Time Status Last Admin Dose Admin Ondansetron HCl 8 mg ONCE ONCE IVP 05/26/20 13:15 05/26/20 13:16 DC 05/26/20 13:34 8 MG Vital Signs/I&O 05/26/20 13:08 Temp 35.6 Pulse 62 Resp 18 B/P (MAP) 139/95 (110) Pulse Ox 99 O2 Delivery Room Air Capillary Refill : Less Than 3 Seconds Blood Pressure Mean: 110 Departure Communication (Admissions) 1427-Nausea and dizziness are gone. Telemetry strip still shows sinus rhythm at 72. States he feels a lot better. Will dc to home with rx for zofran Impression Primary Impression: Nausea Disposition: 01 HOME, SELF-CARE Condition: Stable Departure-Patient Inst. Decision time for Depature: 14:28 Referrals: SELF,PATIENT REFERRAL (PCP) Primary Care Physician Patient Instructions: Nausea and Vomiting, Adult Add. Discharge Instructions: All discharge instructions reviewed with patient and/or family. Voiced understanding. Scripts Ondansetron (Ondansetron Odt) 8 Mg Tab.rapdis 8 MG PO Q6H PRN for NAUSEA/VOMITING, #20 TAB Prov: JAYCE MCFADDEN APRN 05/26/20 Copy Copies To 1: SHAILESH GOLDSTEIN MD FACP FACC CCDS JAYCE MCFADDEN APRN May 26, 2020 13:18
[2020-05-26 13:31] LABS: BASOPHILS # (AUTO) 0.1 10^3/uL (0.0-0.1); BASOPHILS % (AUTO) 1 % (0-10); EOSINOPHILS # (AUTO) 0.4 10^3/uL (0.0-0.3); EOSINOPHILS % (AUTO) 6 % (0-10); HEMATOCRIT 47 % (40-54); HEMOGLOBIN 15.6 G/DL (13.3-17.7); LYMPHOCYTES # (AUTO) 1.6 X 10^3 (1.0-4.0); LYMPHOCYTES % (AUTO) 27 % (12-44); MEAN CORPUSCULAR HEMOGLOBIN 29 PG (25-34); MEAN CORPUSCULAR HGB CONC 34 G/DL (32-36); MEAN CORPUSCULAR VOLUME 86 FL (80-99); MEAN PLATELET VOLUME 9.7 FL (7.4-10.4); MONOCYTES # (AUTO) 0.6 X 10^3 (0.0-1.0); MONOCYTES % (AUTO) 10 % (0-12); NEUTROPHILS # (AUTO) 3.4 X 10^3 (1.8-7.8); NEUTROPHILS % (AUTO) 56 % (42-75); PLATELET COUNT 169 10^3/uL (130-400)
[2020-05-26 13:50] LABS: INR 1.2 (0.8-1.4); PROTHROMBIN TIME PATIENT 15.4 SEC (12.2-14.7)
[2020-05-26 13:57] LABS: ALANINE AMINOTRANSFERASE 57 U/L (0-55); ALBUMIN 4.3 GM/DL (3.2-4.5); ALKALINE PHOSPHATASE 60 U/L (40-136); BILIRUBIN,TOTAL 0.5 MG/DL (0.1-1.0); BUN/CREATININE RATIO 11; CALCIUM 8.8 MG/DL (8.5-10.1); CARBON DIOXIDE 28 MMOL/L (21-32); CHLORIDE 104 MMOL/L (98-107); CREATININE SERUM 1.19 MG/DL (0.60-1.30); GFR ESTIMATED > 60; GLUCOSE 110 MG/DL (70-105); MAGNESIUM 1.9 MG/DL (1.6-2.4); POTASSIUM 4.1 MMOL/L (3.6-5.0); SODIUM 140 MMOL/L (135-145); TOTAL PROTEIN 7.5 GM/DL (6.4-8.2)
[2020-05-26] MEDS ORDERED: ONDA8TAB13 PO (14:28)
[2020-05-26 14:38] VITALS: BP 126/84
== END 2020-05-26 14:38 | disposition home or self-care (01) ==
LOC: EDUNIT# 13:00 → ER 13:01
DX: R11.0 Nausea (principal); I48.91 Unspecified atrial fibrillation; Z79.01 Long term (current) use of anticoagulants
CPT/HCPCS: 36415; 80053; 83735; 83880; 84484; 85025; 85610; 85730; 93005; 93041

== ENCOUNTER 2020-08-27 10:31 | Outpatient (RCR) | payer OTHER ==
[~2020-08-27 10:31] MED LIST changes: +ONDA8TAB13 PO
== END 2020-08-31 | disposition home or self-care (01) ==
PROVIDERS: ATTEND Physical Therapist
DX: M54.5 Low back pain (principal); Z86.79 Personal history of other diseases of the circulatory system

== ENCOUNTER → 2020-09-13 | Outpatient (CLI) | payer OTHER | LOC: LABNPT 07:35 | PROVIDERS: ATTEND Emergency Medicine | DX: Z20.828 Contact with and (suspected) exposure to other viral communicable diseases (principal) | CPT/HCPCS: 87635 ==

== ENCOUNTER 2020-09-14 09:09 | Outpatient (RCR) | payer OTHER | END 2020-12-06 | disposition home or self-care (01) | PROVIDERS: ATTEND Physical Therapist | DX: M54.5 Low back pain (principal) ==

== ENCOUNTER 2021-03-05 12:07 | Outpatient (RCR) | payer OTHER | END 2021-06-03 | LOC: CARD 12:07 | PROVIDERS: ATTEND Nurse Practitioner Family | DX: R00.2 Palpitations (principal) ==

== ENCOUNTER 2021-07-11 14:06 | Emergency (ER) | payer OTHER ==
[~2021-07-11] VITALS: Ht 177 cm; Wt 95.0 kg
[2021-07-11] MEDS ORDERED: LIDOCAINE 1% INJ 20 ML 20 ML VIAL INJ ONE (15:30)
[2021-07-11 16:49] LABS: BODY FLUID APPEARENCE MKD CLDY; BODY FLUID COLOR YELLOW; BODY FLUID SOURCE SYNOVIAL
[2021-07-11 16:50] LABS: BODY FLUID RBC COUNT 3775 /uL; BODY FLUID WBC TOTAL COUNT 125 /uL
[2021-07-11] MEDS ORDERED: DOXYCYCLINE 100 MG (VIBRAMYCIN) TABLET PO STA (17:05)
[2021-07-11] MEDS ORDERED: DOXY100T2 PO (17:09)
--- NOTE | 2021-07-11 17:09 | ED Upper Extremity ---
General Chief Complaint: Upper Extremity Stated Complaint: L ELBOW SWELLING Nursing Triage Note: PT AMB TO FT 2 PT STATES L ELBOW ON DOOR KNOB EARLIER IN WEEK, HAS BECOME PAINFUL AND STIFF RATES PAIN 04/27 Source: patient Exam Limitations: no limitations History of Present Illness Date Seen by Provider: Jul 11, 2021 Time Seen by Provider: 15:20 Initial Comments This 46-year-old gentleman presents to the emergency room with pain, swelling, warmth, and erythema over the olecranon of the left elbow. He struck his elbow on a doorknob about a week ago. A couple days later he developed the pain and swelling. He is on Eliquis for atrial fibrillation. He denies any systemic symptoms. There is no break in the skin. He denies having any notable pain for the first 48 hours after the injury and therefore does not believe there is any bony injury. Allergies and Home Medications Allergies Coded Allergies: No Known Drug Allergies (Unverified , 07/04/10) Patient Home Medication List Home Medication List Reviewed: Yes Apixaban (Eliquis) 5 Mg Tablet, 5 MG PO BID Prescribed by: LOREN MEADE on 04/20/20 0946 Diltiazem HCl (Cardizem Cd) 240 Mg Cap.er.24h, 240 MG PO DAILY Prescribed by: LOREN MEADE on 04/20/20 0946 Doxycycline Hyclate (Doxycycline Hyclate) 100 Mg Tablet, 100 MG PO BID Prescribed by: CHANCE EVANS on 07/11/21 1709 Ondansetron (Ondansetron Odt) 8 Mg Tab.rapdis, 8 MG PO Q6H PRN for NAUSEA/VOMITING Prescribed by: JAYCE MCFADDEN on 05/26/20 1428 Review of Systems Constitutional: no symptoms reported EENTM: no symptoms reported Respiratory: no symptoms reported Cardiovascular: see HPI Gastrointestinal: no symptoms reported Genitourinary: no symptoms reported Musculoskeletal: see HPI Skin: see HPI Psychiatric/Neurological: No Symptoms Reported Past Deqmumr-Alrgaw-Xwsegv Hx Patient Social History Tobacco Use?: No Substance use?: No Alcohol Use?: No Pt feels they are or have been: No Immunizations Up To Date Tetanus Booster (TDap): Unknown Second COVID19 Vaccination Slava: BOTH COVID19 Vaccine Geriatric Nurse: CHAYA Seasonal Allergies Seasonal Allergies: No Past Medical History Surgeries: Yes Tonsillectomy Respiratory: No Cardiac: Yes Atrial Fibrillation Neurological: Yes Headaches /Migraines Genitourinary: Yes Kidney Stones Gastrointestinal: No Musculoskeletal: No Endocrine: No HEENT: No Cancer: No Psychosocial: No Integumentary: No Blood Disorders: No Physical Exam Vital Signs Vital Signs - First Documented 07/11/21 14:15 Temp 36.8 Pulse 77 Resp 18 B/P (MAP) 160/92 (114) Pulse Ox 97 Capillary Refill : Less Than 3 Seconds Height, Weight, BMI Height: '" Weight: lbs. oz. kg; 30.00 BMI Method: General Appearance: WD/WN, no apparent distress HEENT: normal ENT inspection Respiratory: no respiratory distress Shoulder: normal inspection, non-tender, no evidence of injury Elbow/Forearm: Left (There is erythema, warmth, and swelling over the olecranon bursa. This area is painful with range of motion of the elbow. The joint seems to be unaffected. There are no breaks in the skin and no drainage.), pain, swelling Wrist: Yes normal inspection, Yes non-tender, Yes no evidence of injury, Yes normal ROM Procedures/Interventions Progress Informed consent was obtained after discussing risks and benefits. Skin was then scrubbed with alcohol and about 2 mL of lidocaine was injected under the skin surface. Skin was then prepped with Betadine and an 18-gauge needle was used to enter the bursa. About 4 mL of yellow clear fluid was aspirated from the wound. Aspirate was contaminated with a small amount of skin/subcutaneous bleeding. Patient tolerated the procedure well. There was slight bleeding after the procedure which was controlled with direct pressure. Progress/Results/Core Measures Results/Orders Lab Results Laboratory Tests Test 07/11/21 16:02 Range/Units Body Fluid Source SYNOVIAL Body Fluid Color YELLOW Body Fluid Appearance MKD CLDY Body Fluid WBC 125 /uL Body Fluid RBC 3775 /uL Body Fluid Polynuclear WBCs 94 % Body Fluid Mononuclear WBCs 3 % Body Fluid Lymphocytes 2 % Body Fluid Eosinophils % Body Fluid Other Cells 1 % My Orders Orders - CHANCE MARTINEZ MD Lidocaine 1% Inj 20 Ml (Xylocaine 1% Inj (07/11/21 15:30) Body Fluid Cell Count (07/11/21 15:25) Body Fluid Culture (07/11/21 15:25) Doxycycline Hyclate Tablet (Vibramycin T (07/11/21 17:05) Medications Given in ED Current Medications Medications Dose Ordered Sig/Arminda Route Start Time Stop Time Status Last Admin Dose Admin Lidocaine HCl 20 ml ONCE ONCE INJ 07/11/21 15:30 07/11/21 15:31 DC 07/11/21 16:00 1 ML Vital Signs/I&O 07/11/21 07/11/21 14:15 17:17 Temp 36.8 36.8 Pulse 77 77 Resp 18 18 B/P (MAP) 160/92 (114) 160/92 Pulse Ox 97 97 Blood Pressure Mean: 114 Progress Progress Note : Progress Note There is no suspicion for bony injury given absence of notable pain in the first 48 hours after the injury. He appears to have olecranon bursitis. We discussed risks and benefits of aspirating the bursa. This would help provide information on the cause. Potential causes include hematoma from his anticoagulant use, infection, and inflammatory bursitis. After discussing risks and benefits, patient elected to proceed with aspiration. About 4 mL of clear yellow fluid was aspirated. Fluid had the appearance of apple juice. The fluid was sent for microscopic evaluation. There is not a significant amount of WBC noted in the fluid. Therefore infection of the bursa sac was not suspected. There was however significant warmth and erythema of the skin overlying the bursa. For this reason doxycycline was given in the ER and was prescribed for a week. I advised not injecting with steroids until the surface skin inflammation improved. If the skin irritation improves but the bursitis returns, then steroid injection may be considered. An ABD pad was placed over the elbow and it was wrapped with Manuel bandage. See discharge instructions. Departure Impression Primary Impression: Olecranon bursitis of left elbow Disposition: 01 HOME, SELF-CARE Condition: Improved Departure-Patient Inst. Decision time for Depature: 17:06 Referrals: CHARISSE BLAND DO (PCP/Family) Primary Care Physician Patient Instructions: Olecranon Bursitis (DC) Add. Discharge Instructions: Your inflammation and swelling is secondary to olecranon bursitis. Although there is no sign of infection in your bursa fluid, your skin was warm and red. For this reason we will treat with doxycycline as a precaution. If your swelling and inflammation returns, consideration can be given for repeat aspiration and steroid injection. Using a cushion under your left elbow when it must be in contact with a hard surface will help prevent further irritation. Icing in 20-minute intervals would also be helpful. Compressive wrapping such a s an Manuel bandage may be helpful as well. Complete your antibiotic as prescribed. Return to care if you have worsening symptoms, especially if you develop fever or uncontrolled pain or swelling of the elbow joint. Call with questions or concerns. You may use Tylenol for pain relief but avoid NSAIDs due to use of apixaban. All discharge instructions reviewed with patient and/or family. Voiced understanding. Scripts Doxycycline Hyclate (Doxycycline Hyclate) 100 Mg Tablet 100 MG PO BID, #14 TAB 0 Refills Prov: CHANCE MARTINEZ MD 07/11/21 Copy Copies To 1: CHARISSE BLAND JOSHUA T MD Jul 11, 2021 17:09
[2021-07-11 17:17] VITALS: BP 160/92
[2021-07-11 18:15] LABS: BF OTHER CELLS 1 %; LYMPHOCYTES,BODY FLUID 2 %
== END 2021-07-11 17:17 | disposition home or self-care (01) ==
LOC: EDUNIT# 14:06 → ER 14:08
DX: M70.22 Olecranon bursitis, left elbow (principal); I48.91 Unspecified atrial fibrillation; Z79.01 Long term (current) use of anticoagulants
CPT/HCPCS: 87070; 87077; 87205; 89051; 99283

== ENCOUNTER 2021-07-13 09:10 | Emergency (ER) | payer OTHER ==
[~2021-07-13] VITALS: Ht 177.8 cm; Wt 95.0 kg
[~2021-07-13 09:10] MED LIST changes: +DOXY100T2 PO
[2021-07-13 09:20] VITALS: BP 138/82
[2021-07-13] MEDS ORDERED: SULF1TAB38 PO (09:41)
--- NOTE | 2021-07-13 09:43 | ED Upper Extremity ---
General Chief Complaint: Skin/Wound Problems Stated Complaint: WOUND CHECK Source: patient Exam Limitations: no limitations History of Present Illness Date Seen by Provider: Jul 13, 2021 Time Seen by Provider: 09:35 Initial Comments This 46 year old gentleman presents for a wound check on a left elbow bursitis for which he was first seen 2 days ago after injuring his elbow 1 week prior. He presents with a vial of solu-medrol anticipating injection. However, there is more skin inflammation today. He is afebrile and has been on Doxycyline x [address] Hobbs was consulted by phone. Recommended against injecting with steroids. He also recommended considering aspirating again for culture and therapy as well as adding Bactrim to the treatment regimen. Patient has a-fib and is anticoagulated. There was no significant blood in the initial aspirate. Allergies and Home Medications Allergies Coded Allergies: No Known Drug Allergies (Unverified , 07/04/10) Patient Home Medication List Home Medication List Reviewed: Yes Apixaban (Eliquis) 5 Mg Tablet, 5 MG PO BID Prescribed by: LOREN MEADE on 04/20/20 0946 Diltiazem HCl (Cardizem Cd) 240 Mg Cap.er.24h, 240 MG PO DAILY Prescribed by: LOREN MEADE on 04/20/20 0946 Doxycycline Hyclate (Doxycycline Hyclate) 100 Mg Tablet, 100 MG PO BID Prescribed by: CHANCE EVANS on 07/11/21 1709 Ondansetron (Ondansetron Odt) 8 Mg Tab.rapdis, 8 MG PO Q6H PRN for NAUSEA/VOMITING Prescribed by: JAYCE MCFADDEN on 05/26/20 1428 Sulfamethoxazole/Trimethoprim (Bactrim Ds Tablet) 1 Each Tablet, 1 EACH PO BID Prescribed by: CHANCE EVANS on 07/13/21 0941 Review of Systems Constitutional: no symptoms reported Musculoskeletal: see HPI Skin: see HPI Past Qxbcksl-Lemdep-Fpqfyz Hx Patient Social History Tobacco Use?: No Use of E-Cig and/or Vaping dev: No Substance use?: No Alcohol Use?: No Pt feels they are or have been: No Immunizations Up To Date Tetanus Booster (TDap): Unknown Influenza Vaccine Up-to-Date: No; Not Current First/Initial COVID19 Vaccinat: 2020 Second COVID19 Vaccination Slava: 2020 COVID19 Vaccine Entry Level Account Executive: unk Seasonal Allergies Seasonal Allergies: No Past Medical History Surgeries: Yes Tonsillectomy Respiratory: No Cardiac: Yes Atrial Fibrillation Neurological: Yes Headaches /Migraines Genitourinary: Yes Kidney Stones Gastrointestinal: No Musculoskeletal: No Endocrine: No HEENT: No Cancer: No Psychosocial: No Integumentary: No Blood Disorders: No Physical Exam Vital Signs Vital Signs - First Documented 07/13/21 09:20 Temp 36.3 Pulse 78 Resp 18 B/P (MAP) 138/82 (100) Pulse Ox 96 O2 Delivery Room Air Capillary Refill : Height, Weight, BMI Height: '" Weight: lbs. oz. kg; 30.00 BMI Method: General Appearance: WD/WN, no apparent distress Elbow/Forearm: Left (Warmth, erythema, swelling and TTP over the left olecranon bursa), pain, swelling Procedures/Interventions Additional Procedures: cardioversion/defib Progress Informed consent for bursa aspiration was obtained after discussing risks and benefits. Skin was prepped with alcohol. 0.5 mL lidocaine was injected for anesthesia. Skin was then prepped with betadine. Sterile technique was used to aspirate the bursa with a 20g needle yielding about 2 ml of slightly cloudy and slightly bloody yellow fluid. Bleeding was controlled. Aspirate sent for culture. Progress/Results/Core Measures Results/Orders My Orders Progress Progress Note : Progress Note Discussed with Dr. Hobbs. Bursa aspirated again for therapeutic and culture benefit. Bactrim added to antibiotic therapy. Departure Impression Primary Impression: Olecranon bursitis of left elbow Additional Impression: Injury of left elbow Qualified Codes: S59.902D - Unspecified injury of left elbow, subsequent encounter Disposition: HOME, SELF-CARE Condition: Improved Departure-Patient Inst. Decision time for Depature: 09:41 Referrals: CHARISSE BLAND DO (PCP/Family) Primary Care Physician Patient Instructions: Olecranon Bursitis (DC) Add. Discharge Instructions: Continue with padding, elevation, icing in 20-minute intervals, and compressive wrapping to help manage symptoms. Added Bactrim DS to doxycycline as prescribed. Your aspirate was cultured and results should be available within 48 hours. Call with questions or concerns. Return to the ER if you have worsening symptoms. All discharge instructions reviewed with patient and/or family. Voiced understanding. Scripts Sulfamethoxazole/Trimethoprim (Bactrim Ds Tablet) 1 Each Tablet 1 EACH PO BID, #20 TAB Prov: CHANCE MARTINEZ MD 07/13/21 Copy Copies To 1: CHARISSE BLAND JOSHUA T MD Jul 13, 2021 09:42
[2021-07-13 10:39] LABS: BODY FLUID APPEARENCE MKD CLDY; BODY FLUID COLOR YELLOW; BODY FLUID RBC COUNT 17750 /uL; BODY FLUID SOURCE SYNOVIAL; BODY FLUID WBC TOTAL COUNT 8500 /uL; LYMPHOCYTES,BODY FLUID 5 %
== END 2021-07-13 09:50 | disposition home or self-care (01) ==
LOC: EDUNIT# 09:10 → ER 09:12
DX: M70.22 Olecranon bursitis, left elbow (principal); S59.902A Unspecified injury of left elbow, initial encounter; I48.91 Unspecified atrial fibrillation; Z79.01 Long term (current) use of anticoagulants; X58.XXXA Exposure to other specified factors, initial encounter
CPT/HCPCS: 87070; 87077; 87205; 89051; 99282